=== PATIENT | male | born 1985 | race American Indian/Alaskan Native ===

== ENCOUNTER 2016-12-04 02:38 | Emergency (ER) | payer SELFPAY ==
[2016-12-04 04:02] LABS: BASO % 0.2 % (0.0-2.0); EOS % 0.2 % (0.0-4.0); HEMATOCRIT 44.4 % (35.0-51.0); LYMPH # 1.9 K/uL (1.0-4.3); LYMPH % 23.1 % (20.0-40.0); MEAN CELL VOLUME 91.9 fL (80.0-94.0); MEAN CORPUSCULAR HGB CONC 32.7 g/dL (33.0-37.0); MONO # 0.6 K/uL (0.0-0.8); MONO % 7.4 % (0.0-10.0); WHITE BLOOD COUNT 8.2 K/uL (4.8-10.8)
[2016-12-04 04:07] LABS: RBC URINE 3 /hpf (0-3); URINE BILIRUBIN NEGATIVE (NEGATIVE); URINE BLOOD 1+ (NEGATIVE); URINE COLOR Yellow (YELLOW); URINE GLUCOSE (UA) NORMAL (Normal); URINE KETONE NEGATIVE (NEGATIVE); URINE LEUKOCYTE ESTERASE NEG Leu/uL (Negative); URINE PROTEIN NEGATIVE (NEGATIVE); WBC URINE 1 /hpf (0-5)
[2016-12-04 04:13] LABS: CHLORIDE 98 mmol/L (98-107); POTASSIUM 3.4 mmol/L (3.6-5.2); SODIUM 138 mmol/L (132-148)
[2016-12-04 04:15] LABS: CARBON DIOXIDE 27 mmol/L (22-30); GFR AFRICAN-AMERICAN > 60
[2016-12-04 04:16] LABS: ALB/GLOB RATIO 1.6 (1.0-2.1); ALKALINE PHOSPHATASE 57 U/L (38-126); ALT/SGPT 25 U/L (21-72); AST/SGOT 25 U/L (17-59); BLOOD UREA NITROGEN 11 mg/dL (9-20); CALCIUM 9.3 mg/dl (8.6-10.4); GLUCOSE,RANDOM 96 mg/dL (75-110); TOTAL PROTEIN 7.5 g/dL (6.3-8.3)
[2016-12-04 04:17] LABS: ALCOHOL SERUM < 10 mg/dl (0-10)
--- NOTE | 2016-12-04 05:45 | C.PDOC ---
Addendum entered and electronically signed by Gabriela Torres PA-C 07:04: Addendum Addendum: 12/04/16 07:00 CXR: Negative( no infiltrates) EKG:NSR at 73 Pt is medically cleared for screening 12/04/16 07:00 Physician Patient Turnover Patient Signed Over To: Christopher Gudino Handoff Comments: pedinf [facility] screening Original Note: History Of Present Illness <Gabriela Torres - Last Filed: 12/04/16 07:00> <Christopher Gudino - Last Filed: 12/04/16 09:43> 31 Y/O MALE PRESENT TO ER BIBEMS c/o of auditory hallucinations x 1 1/2 weeks. Denies Suicidal, homicidal ideations. Pt denies any medical c/o at this time. ( Gabriela Torres) History Per: Patient History/Exam Limitations: no limitations <Gabriela Torres - Last Filed: 12/04/16 07:00> <Christopher Gudino - Last Filed: 12/04/16 09:43> Time Seen by Provider: 12/04/16 03:18 Chief Complaint (Nursing): Psychiatric Evaluation Past Medical History - Medical History PMH: No Chronic Diseases Family History: States: Unknown Family Hx - Social History Hx Alcohol Use: Yes Hx Substance Use: Yes <Gabriela Torres - Last Filed: 12/04/16 07:00> Vital Signs: Last Vital Signs Temp 98 F 12/04/16 07:34 Pulse 71 12/04/16 07:34 Resp 20 12/04/16 07:34 BP 138/90 12/04/16 07:34 Pulse Ox 97 12/04/16 07:34 Review Of Systems Constitutional: Negative for: Fever Respiratory: Negative for: Cough, Shortness of Breath Psych: Positive for: Other (auditory hallucinations). Negative for: Suicidal ideation <Gabriela Trores - Last Filed: 12/04/16 07:00> Physical Exam - Physical Exam Appears: Well, Non-toxic Skin: Normal Color Head: Atraumatic Eye(s): bilateral: Normal Inspection Neck: Normal Cardiovascular: Other (pt refused to be examined) Respiratory: Other (refused exam) Extremity: Bilateral: Atraumatic Gait: Steady <Gabriela Torres - Last Filed: 12/04/16 07:00> ED Course And Treatment - Laboratory Results Result Diagrams: 12/04/16 03:57 12/04/16 03:57 O2 Sat by Pulse Oximetry: 97 Pulse Ox Interpretation: Normal Progress Note: Pt is medically cleared for crisis/ screener's evalution. Pt was evaluated by Crisis and needs screening for involuntary commitment. CXR and EKG ordered <Gabriela Torres - Last Filed: 12/04/16 07:00> - Laboratory Results Result Diagrams: 12/04/16 03:57 12/04/16 03:57 Reevaluation Time: 09:43 Reassessment Condition: Improved (evaled by Psych and Dr. Faith kolb for d/c without f/u per pt preference, baseline Schizophrenia) <Christopher Gudino - Last Filed: 12/04/16 09:43> Disposition - Disposition Disposition Time: 05:53 <Gabriela Torres - Last Filed: 12/04/16 07:00> Doctor Will See Patient In The: Office Counseled Patient/Family Regarding: Studies Performed, Diagnosis - Disposition Disposition Time: 09:43 <Christopher Gudino - Last Filed: 12/04/16 09:43> - Disposition Disposition: HOME/ ROUTINE Condition: GOOD - Clinical Impression Clinical Impression: Schizophrenia
[2016-12-04 09:44] VITALS: BP 140/90; PULSE 79; RESP 18; TEMP 97.7; O2SAT 100
--- NOTE | 2016-12-04 09:46 | RAD ---
HISTORY: admission COMPARISON: No prior. TECHNIQUE: Chest PA and lateral FINDINGS: LUNGS: Mild venous congestion. Upper lobe nodularity may be external to the patient. Clinical correlation. PLEURA: No significant pleural effusion identified. No pneumothorax apparent. CARDIOVASCULAR: Normal. OSSEOUS STRUCTURES: No significant abnormalities. VISUALIZED UPPER ABDOMEN: Normal. OTHER FINDINGS: None. IMPRESSION: Mild venous congestion. Upper lobe nodularity may be external to the patient. Clinical correlation.
--- NOTE | 2016-12-04 12:42 | PCM.PSYCH ---
Initial Psychiatric Evaluation - Initial Psychiatric Evaluation Type of Admission: Voluntary Legal Status: Capacity Chief Complaint (in patient's own words): "Just wanna leave" History of Present Illness and Precipitating Events: The pt is seen, chart reviewed and case discussed Consult was requested for his psychiatric condition. He is a 31 yo LM, single, no child, homeless. Poor historian. He admits to feeling depressed and hearing voices but denies command hallucinations or SI/SP. He also doesn't report any HI/HP but he admits to not trusting people and that many people allegedly wronged him. Reports paranoid thoughts. Pt admits to smoking MJ daily and drinking "few shots" He had wdw sxs in the past but denies now. Denies other drugs No psych tx and is not interested and claims "they are sicker than me" meaning mental health staff. Past psych hx: Vague, guarded, says no but he looks like he has hx. Medical; Eye problems Family hx: Denies Past Psychiatric History - Past Psychiatric History Pertinent Medical Hx (Current Medical&Sleep Prob, Allergies): Allergies Allergy/AdvReac Type Severity Reaction Status Date / Time No Known Allergies Allergy Verified 12/04/16 03:15 No Known Home Med 12/04/16 Review of Systems - Psychiatric Psychiatric: Abnormal Sleep Pattern, Anxiety, Difficulty Concentrating, Hallucinations, Irritability, Mood Swings, Paranoia. absent: Homicidal Ideation , Suicidal Ideation Mental Status Examination - Personal Presentation Personal Presentation: Looks older than stated age (disheveled, long dreadlocks) - Affect Affect: Constricted - Motor Activity Motor Activity: Calm - Reliability in Providing Information Reliability in Providing Information: Fair - Speech Speech: Tangential - Mood Mood: Anxious - Formal Thought Process Formal Thought Process: Hallucinations, Paranoia, Loosening of associations - Cognitive Functions Orientation: Person, Place, Time Sensorium: Alert Attention/Concentration: Attentive Abstract Thinking: [place] Estimate of Intelligence: Average Judgement: Intact, as evidence by: Insight regarding need for hospitalization Memory: Recent intact, as evidence by: Ability to recall events of the day, Remote intact, as evidenced by: Abilit to recall sig. life events - Risk Risk: Diminished functioning - Strength & Assets Inventory Strength & Assets Inventory: Cooperative - Limitations Limitations: Living alone DSM 5 DX - DSM 5 DSM 5 Diagnosis: Schizoaffective d/o - bipolar type r/o Schizophrenia Alcohl use d/o - severe Cannabis use d/o -severe - Recommended/Plan of Treatment Treatment Recommendations and Plan of Treatment: Pt is cleared for d/c He is not committable and he is refusing to sign in Return to ER if needed Stay away from drugs, alcohol Risks of leaving without treatment, incl. detox, discussed and he understood but still left. 33 min
--- NOTE | 2016-12-04 12:48 | CARD ---
APPROVED REPORT EKG Measurement Heart [id number] <Conclusion> Normal sinus rhythm Normal ECG
== END 2016-12-04 09:30 | disposition home or self-care (01) ==
LOC: C.ER 02:38
DX: F25.0 Schizoaffective disorder, bipolar type (principal); F10.20 Alcohol dependence, uncomplicated; F12.90 Cannabis use, unspecified, uncomplicated; Y90.9 Presence of alcohol in blood, level not specified
CPT/HCPCS: 71020; 80053; 81001; 85025; 93005; 99284; G0480

== ENCOUNTER 2016-12-10 16:17 | Emergency (ER) | payer MEDICARE ==
[2016-12-10 16:26] VITALS: BP 132/87; RESP 18; TEMP 97.8; O2SAT 97
--- NOTE | 2016-12-10 16:48 | C.PDOC ---
History Of Present Illness 31 year old patient presents to the ED requesting detox from alcohol, ecstasy, and marijuana. Patient states he drinks alcohol, smokes cannabis, and uses ecstasy daily. Patient denies nausea, vomiting, shortness of breath, suicidal or homicidal ideation. Patient states he recently lost his job, is homeless and wants a place to stay. Time Seen by Provider: 12/10/16 16:43 Chief Complaint (Nursing): Substance Abuse History Per: Patient History/Exam Limitations: no limitations Onset/Duration Of Symptoms: Other Suicide/Self Injury Attempted (Context): None Modifying Factor(s): Alcohol, Marijuana, Other Severity: None Pain Scale Rating Of: 0 Recent travel outside of the [place]: No Past Medical History Reviewed: Historical Data, Nursing Documentation, Vital Signs Vital Signs: Last Vital Signs Temp 97.8 F 12/10/16 16:22 Pulse 72 12/10/16 17:12 Resp 18 12/10/16 17:12 BP 132/87 12/10/16 16:22 Pulse Ox 97 12/10/16 17:12 Family History: States: Unknown Family Hx - Social History Hx Alcohol Use: Yes Hx Substance Use: Yes - Immunization History Hx Tetanus Toxoid Vaccination: No Hx Influenza Vaccination: No Hx Pneumococcal Vaccination: No Review Of Systems Except As Marked, All Systems Reviewed And Found Negative. Respiratory: Negative for: Shortness of Breath Gastrointestinal: Negative for: Nausea, Vomiting Psych: Negative for: Suicidal ideation Physical Exam - Physical Exam Appears: Non-toxic, No Acute Distress, Other (thin, black man with long dreadlocks) Skin: Warm, Dry Head: Atraumatic, Normacephalic Eye(s): bilateral: PERRL, EOMI Neck: Normal ROM, Supple Chest: Symmetrical Cardiovascular: Rhythm Regular Respiratory: No Accessory Muscle Use Extremity: Normal ROM Neurological/Psych: Oriented x3 Gait: Steady ED Course And Treatment O2 Sat by Pulse Oximetry: 97 (RA) Pulse Ox Interpretation: Normal Medical Decision Making Medical Decision Making: seeking detox from marijuana, ecstasy (Amphetamine), and alcohol, but not drinking alcohol lately. NO detox beds available per Crisis Evaled for same recently, and pt declined now lost his job and ? homeless, consider secondary gains... pt has no significant detoxable addictions at this time. Disposition Doctor Will See Patient In The: Office Counseled Patient/Family Regarding: Studies Performed, Diagnosis - Disposition Referrals: [facility] [Outside] [facility] [Outside] Disposition: HOME/ ROUTINE Disposition Time: 16:56 Condition: GOOD Additional Instructions: There are NO detox beds available at this time. Call back to seek availability of the [facility] Detox progams: lists given seek outpatient detox programs. Seek local senior living placement if homeless (lists given) Instructions: Polysubstance Abuse (ED) - Clinical Impression Clinical Impression: Drug abuse - Scribe Statement The provider has reviewed the documentation as recorded by the Scribe Maddi Stafford Provider Attestation: All medical record entries made by the Scribe were at my direction and personally dictated by me. I have reviewed the chart and agree that the record accurately reflects my personal performance of the history, physical exam, medical decision making, and the department course for this patient. I have also personally directed, reviewed, and agree with the discharge instructions and disposition.
[2016-12-10 17:16] VITALS: PULSE 72
== END 2016-12-10 17:19 | disposition home or self-care (01) ==
LOC: C.ER 16:17
DX: F19.10 Other psychoactive substance abuse, uncomplicated (principal)

== ENCOUNTER 2017-01-18 01:37 | Inpatient (IN) | payer MEDICARE ==
[2017-01-18 02:23] LABS: BASO % 0.5 % (0.0-2.0); EOS % 0.3 % (0.0-4.0); HEMATOCRIT 44.8 % (35.0-51.0); LYMPH # 1.1 K/uL (1.0-4.3); LYMPH % 18.2 % (20.0-40.0); MEAN CELL VOLUME 91.8 fL (80.0-94.0); MEAN CORPUSCULAR HGB CONC 32.7 g/dL (33.0-37.0); MEAN PLATELET VOLUME 8.5 fL (7.2-11.7); MONO # 0.9 K/uL (0.0-0.8); MONO % 13.7 % (0.0-10.0); RED CELL DISTRIBUTION WIDTH 14.3 % (11.5-14.5); WHITE BLOOD COUNT 6.2 K/uL (4.8-10.8)
[2017-01-18 02:29] LABS: CHLORIDE 100 mmol/L (98-107); POTASSIUM 3.8 mmol/L (3.6-5.2); SODIUM 139 mmol/L (132-148)
[2017-01-18 02:31] LABS: ALKALINE PHOSPHATASE 66 U/L (38-126); AST/SGOT 19 U/L (17-59); BILIRUBIN,TOTAL 1.8 mg/dL (0.2-1.3); CARBON DIOXIDE 29 mmol/L (22-30); GFR AFRICAN-AMERICAN > 60; TOTAL PROTEIN 7.2 g/dL (6.3-8.3)
[2017-01-18 02:32] LABS: ALCOHOL SERUM < 10 mg/dl (0-10); ALT/SGPT 27 U/L (21-72); BLOOD UREA NITROGEN 15 mg/dL (9-20); CALCIUM 9.1 mg/dl (8.6-10.4); GLUCOSE,RANDOM 91 mg/dL (75-110)
[2017-01-18 02:34] LABS: ALB/GLOB RATIO 2.6 (1.0-2.1)
--- NOTE | 2017-01-18 03:26 | C.PDOC ---
History Of Present Illness <Marian Bee - Last Filed: 01/18/17 03:52> <SolVaishali - Last Filed: 01/18/17 05:22> Patient is a 31 year old male who presents to the ER stating he is depressed and has suicidal ideation. Patient states he is "crazy". ? auditory hallucinations. Denies PMHx or any physical complaints. (Vaishali Horton) <Marian Bee - Last Filed: 01/18/17 03:52> History Per: Patient History/Exam Limitations: no limitations Onset/Duration Of Symptoms: Hrs Current Symptoms Are (Timing): Still Present Suicide/Self Injury Attempted (Context): None Associated Symptoms: Depression, Suicidal Thoughts Involuntary Hold By: None Recent travel outside of the [place]: No <Nicky Hortonov - Last Filed: 01/18/17 05:22> Time Seen by Provider: 01/18/17 01:49 Chief Complaint (Nursing): Psychiatric Evaluation Past Medical History Reviewed: Historical Data, Nursing Documentation, Vital Signs - Medical History PMH: No Chronic Diseases Surgical History: No Surg Hx Family History: States: Unknown Family Hx - Social History Hx Alcohol Use: Yes Hx Substance Use: Yes (unknown) - Immunization History Hx Tetanus Toxoid Vaccination: No Hx Influenza Vaccination: No Hx Pneumococcal Vaccination: No <OrlandokyedonaldVaishali - Last Filed: 01/18/17 05:22> Vital Signs: Last Vital Signs Temp 98 F 01/18/17 04:24 Pulse 81 01/18/17 04:24 Resp 20 01/18/17 04:24 BP 116/74 01/18/17 04:24 Pulse Ox 98 01/18/17 04:24 Review Of Systems Psych: Positive for: Depression, Suicidal ideation <Vaishali Horton - Last Filed: 01/18/17 05:22> Physical Exam - Physical Exam Appears: Non-toxic, No Acute Distress, Other (Guarded, hard to understand) Skin: Normal Color, Warm, Dry Head: Atraumatic, Normacephalic Eye(s): bilateral: Normal Inspection, EOMI Oral Mucosa: Moist Chest: Symmetrical, No Tenderness Cardiovascular: Rhythm Regular, No Murmur Respiratory: Normal Breath Sounds, No Accessory Muscle Use Neurological/Psych: Oriented x3, Normal Speech, Other (No focal deficits) <Vaishali Horton - Last Filed: 01/18/17 05:22> ED Course And Treatment - Laboratory Results Result Diagrams: 01/18/17 02:18 01/18/17 02:18 <Marian Bee - Last Filed: 01/18/17 03:52> - Laboratory Results Result Diagrams: 01/18/17 02:18 01/18/17 02:18 O2 Sat by Pulse Oximetry: 98 (Room air) Pulse Ox Interpretation: Normal Progress Note: Urinalysis ordered. Crisis contacted for evaluation. Pt was seen an d evaluted by social media project manager who discussed case with Dr De La Cruz and agreed upon admission. <Vaishali Horton - Last Filed: 01/18/17 05:22> Disposition Discussed With .: Barbi De La Cruz Comment: accepted the pt on his service and took over the care at 3:52 AM Doctor Will See Patient In The: Hospital Counseled Patient/Family Regarding: Studies Performed, Diagnosis - Disposition Disposition Time: 02:00 - POA Present On Arrival: None <Marian Bee - Last Filed: 01/18/17 03:52> <Vaishali Horton - Last Filed: 01/18/17 05:22> - Disposition Disposition: HOSPITALIZED Condition: FAIR - Clinical Impression Clinical Impression: Schizophrenia, Drug abuse, Alcohol abuse <Marian Bee - Last Filed: 01/18/17 03:52> - Scribe Statement The provider has reviewed the documentation as recorded by the Scribe <Vaishali Horton - Last Filed: 01/18/17 05:22> - Scribe Statement Jai Morin All medical record entries made by the Scribe were at my direction and personally dictated by me. I have reviewed the chart and agree that the record accurately reflects my personal performance of the history, physical exam, medical decision making, and the department course for this patient. I have also personally directed, reviewed, and agree with the discharge instructions and disposition. (Vaishali Horton) Decision To Admit - Pt Status Changed To: Hospital Disposition Of: Inpatient - Admit Certification Admit to Inpatient:: After my assessment, the patient will require hospitalization for at least two midnights. This is because of the severity of symptoms shown, intensity of services needed, and/or the medical risk in this patient being treated as an outpatient. - InPatient: Physician Admission Certification: I certify that this patient requires 2 or more midnights of care for the following reason:: After my assessment, the patient will require hospitalization for at least two midnights. This is because of the severity of symptoms shown, intensity of services needed, and/or the medical risk in this patient being treated as an outpatient. - . Bed Request Type: Psychiatry Admitting Physician: Barbi De La Cruz <Marian Bee - Last Filed: 01/18/17 03:52> <Vaishali Horton - Last Filed: 01/18/17 05:22> - . Patient Diagnosis: Schizophrenia, Drug abuse, Alcohol abuse
[2017-01-18 03:30] LABS: RBC URINE 6 /hpf (0-3); URINE BILIRUBIN 1+ (NEGATIVE); URINE BLOOD NEGATIVE (NEGATIVE); URINE COLOR Amber (YELLOW); URINE GLUCOSE (UA) NORMAL (Normal); URINE KETONE TRACE mg/dL (NEGATIVE); URINE LEUKOCYTE ESTERASE NEG Leu/uL (Negative); URINE PROTEIN NEGATIVE (NEGATIVE); WBC URINE < 1 /hpf (0-5)
--- NOTE | 2017-01-18 10:17 | PCM.PSYCH ---
Initial Psychiatric Evaluation - Initial Psychiatric Evaluation Type of Admission: Voluntary Legal Status: Capacity Chief Complaint (in patient's own words): "I was hearing voices and wanted to kill myself." History of Present Illness and Precipitating Events: Patient is a 31 year old male. He states he is currently homeless after being kicked out of his cousin's house in May for fighting too much. 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 He states he quit his job because he was hearing voices about nursing home, rape, and AIDS. He states the voices were telling him to harm himself. Pt remained remained disorganized and internally preoccupied throughout the interview. He appeared disheveled and unkempt and remained suspicious and delusional. He appeared superficially cooperative but remained guarded about the details. Patient has a history of alcohol abuse and ecstasy abuse. He states his last ecstasy run was 2 months ago. He states he would gum 2-3 tablets. Patient states "I think I am crazy" and demonstrates with his hands that the voices are always talking to him. Patient states he is suicidal but has never attempted to kill himself. Patient is guarded, suspicious, and superficially cooperative during the encounter, and avoided making eye contact. PMHx: patient states he is unsure Current Medications: Active Medications Generic Name Dose Route Start Last Admin Trade Name Freq PRN Reason Stop Dose Admin Benztropine Mesylate 2 mg 01/18/17 08:40 Cogentin PO Q6 PRN Extra Pyramidal Symptoms Diphenhydramine HCl 50 mg 01/18/17 08:40 Benadryl PO Q6 PRN Extra Pyramidal Symptoms Haloperidol 5 mg 01/18/17 08:40 Haldol PO Q8 PRN Moderate Agitation Haloperidol Lactate 5 mg 01/18/17 08:40 Haldol IM Q8 PRN Moderate Agitation Hydroxyzine HCl 50 mg 01/18/17 08:41 Atarax PO Q6 PRN Agitation Lorazepam 2 mg 01/18/17 08:40 Ativan PO Q8H PRN Severe Agitation Trazodone HCl 50 mg 01/18/17 22:00 Desyrel PO HS [facility] Past Psychiatric History - Past Psychiatric History Previous Treatment History: Inpatient Pertinent Medical Hx (Current Medical&Sleep Prob, Allergies): Allergies Allergy/AdvReac Type Severity Reaction Status Date / Time No Known Allergies Allergy Verified 12/10/16 16:26 No Known Home Med 12/04/16 Review of Systems - Review of Systems All systems: reviewed and no additional remarkable complaints except - Psychiatric Psychiatric: Anxiety, Auditory Hallucinations, Irritability, Suicidal Ideation, Visual Hallucinations Mental Status Examination - Personal Presentation Personal Presentation: Looks stated age - Affect Affect: Constricted - Motor Activity Motor Activity: Psychomotor Retardation - Reliability in Providing Information Reliability in Providing Information: Poor, due to alteration in thoughts, Poor , due to altered mood - Speech Speech: Disorganized - Mood Mood: Anxious - Formal Thought Process Formal Thought Process: Hallucinations, Delusions, Paranoia, Loosening of associations - Hallucinations/Delusions Hallucinations: Visual Delusions: Persecution - Obsessions/Compulsions Obsessions: No Compulsions: No - Cognitive Functions Orientation: Person, Place, Situation, Time Sensorium: Alert Attention/Concentration: Attentive Abstract Thinking: [place] Estimate of Intelligence: Below average Judgement: Imparied, as evidence by: Poor judgement, Imparied, as evidence by: Lack of insight into illness - Risk Risk: Suicidal, Diminished functioning - Strength & Assets Inventory Strength & Assets Inventory: Life experience DSM 5 DX - DSM 5 DSM 5 Diagnosis: schizoaffective disorder bipolar type Stimulant use disorder severe - Recommended/Plan of Treatment Treatment Recommendations and Plan of Treatment: Schizoaffective disorder bipolar type CBT Psychoeducation Supportive therapy, group therapy, individual therapy Depakote 250 mg by mouth BID Haldol 5 mg by mouth twice a day Cogentin 1 mg PO BID Trazodone 50 mg by mouth daily at bedtime Stimulant use disorder severe CBT Psychoeducation Supportive therapy, individual therapy Use [place] for abstinence - Smoking Cessation Smoking Cessation Initiated: No
[2017-01-19] MEDS: Divalproex 250 mg DR Tab PO SCH ×2 (10:31→17:52)
--- NOTE | 2017-01-19 15:48 | PCM.PYCHPN ---
Psychiatric Progress Note - Psychiatric Progress Note Patient seen today, length of contact: 15 min Patient Chief Complaint: "I m still hearing voices Problems Identified/Issues Discussed: Patient seen and evaluated, chart reviewed and discussed with the nurse. Patient remained disorganized and internally preoccupied. Patient remained isolated, confined and withdrawn. He still reports of hearing voices. Patient still appears paranoid and delusional. He reports depressed mood and feelings of hopelessness and helplessness. He is taking medication and denies any side effects. Supportive therapy and psychoeducation were given. Medication Change: No Medical Record Reviewed: Yes Mental Status Examination - Cognitive Function Orientation: Person, Place, Situation, Time Memory: Intact Attention: WNL Concentration: Poor Association: Loose Fund of Knowledge: Poor - Mood Mood: Anxious - Affect Affect: Constricted - Speech Speech: Soft - Formal Thought Process Formal Thought Process: Hallucinations, Delusions, Paranoia, Loosening of associations - Suicidal Ideation Suicidal Ideation: No - Homicidal Ideation Homicidal Ideation: No Goal/Treatment Plan - Goal/Treatment Plan Need for Continued Stay: Discharge may exacerbated symptoms, Severe functional impairment Progress Toward Problem(s) and Goals/Treatment Plan: Schizoaffective disorder bipolar type CBT Psychoeducation Supportive therapy, group therapy, individual therapy Depakote 250 mg by mouth BID Haldol 5 mg by mouth twice a day Cogentin 1 mg PO BID Trazodone 50 mg by mouth daily at bedtime Stimulant use disorder severe CBT Psychoeducation Supportive therapy, individual therapy Use [place] for abstinence - Smoking Cessation Smoking Cessation Initiated: No
[2017-01-20] MEDS: Divalproex 250 mg DR Tab PO SCH ×2 (10:33→17:26)
[2017-01-20 11:13] VITALS: O2SAT 99
--- NOTE | 2017-01-20 16:46 | PCM.PYCHPN ---
Psychiatric Progress Note - Psychiatric Progress Note Patient seen today, length of contact: 15 min Patient Chief Complaint: I'm feeling better, can I go home today. Problems Identified/Issues Discussed: Patient seen. Chart reviewed. Case discussed with the staff. Issues related to illness and treatment were discussed with the patient. Patient reported compliant with treatment with no adverse affects. Patient was requesting for discharge today. Patient was not stable enough for discharge as patient appeared angry, irritable and internally preoccupied. Later patient signed a 48 hour notice for discharge. Medical Problems: None reported Diagnostic Results: Reviewed DSM 5 Symptoms Update: Some improvement Medication Change: No Medical Record Reviewed: Yes Mental Status Examination - Cognitive Function Orientation: Person, Place, Situation, Time Memory: Intact Attention: WNL Concentration: WNL Association: WNL Fund of Knowledge: WN Decription of patient's judgement and insights: Poor - Mood Mood: Neutral - Affect Affect: Constricted - Speech Speech: Appropriate - Formal Thought Process Formal Thought Process: Other (Internally preoccupied) - Suicidal Ideation Suicidal Ideation: No - Homicidal Ideation Homicidal Ideation: No Goal/Treatment Plan - Goal/Treatment Plan Need for Continued Stay: Remain at risks for inpatient hospitalization, Discharge may exacerbated symptoms, Severe functional impairment Progress Toward Problem(s) and Goals/Treatment Plan: Patient education Supportive therapy Continue treatment as before Estimated Date of D/C: 01/25/17 - Smoking Cessation Smoking Cessation Initiated: Yes
--- NOTE | 2017-01-20 18:39 | CP.PCM.PN ---
Subjective - Date & Time of Evaluation Date of Evaluation: 01/20/17 Time of Evaluation: 18:37 - Subjective Subjective: House Doctor Note: Patient denies penile discharge or discomfort . Patient requesting STD testing. Will order while in house. No need for medical consult at this time as per Dr. Rodriguez (hospitalist). f/u HIV, RPR, HSV, GC/Chlamydia as requested by patient. Will follow up results in the AM. Eveline Novoa DO- PGY 2 Objective - Vital Signs/Intake and Output Vital Signs (last 24 hours): Temp Pulse Resp BP Pulse Ox 98.2 F 107 H 18 124/86 99 01/20/17 08:12 01/20/17 16:00 01/20/17 08:12 01/20/17 16:00 01/20/17 08:12 - Medications Medications: Current Medications Benztropine Mesylate (Cogentin) 2 mg PO Q6 PRN PRN Reason: Extra Pyramidal Symptoms Benztropine Mesylate (Cogentin) 1 mg PO BID [facility] Last Admin: 01/20/17 17:25 Dose: 1 mg Diphenhydramine HCl (Benadryl) 50 mg PO Q6 PRN PRN Reason: Extra Pyramidal Symptoms Divalproex Sodium (Depakote Dr) 250 mg PO BID [facility] Last Admin: 01/20/17 17:26 Dose: 250 mg Haloperidol (Haldol) 5 mg PO Q8 PRN PRN Reason: Moderate Agitation Last Admin: 01/18/17 12:50 Dose: 5 mg Haloperidol (Haldol) 5 mg PO BID [facility] Last Admin: 01/20/17 17:27 Dose: 5 mg Haloperidol Lactate (Haldol) 5 mg IM Q8 PRN PRN Reason: Moderate Agitation Hydroxyzine HCl (Atarax) 50 mg PO Q6 PRN PRN Reason: Agitation Lorazepam (Ativan) 2 mg PO Q8H PRN PRN Reason: Severe Agitation Last Admin: 01/18/17 17:36 Dose: 2 mg Nicotine (Nicoderm Cq) 1 patch TD DAILY [facility] Last Admin: 01/20/17 10:34 Dose: 1 patch Trazodone HCl (Desyrel) 50 mg PO HS [facility] Last Admin: 01/18/17 22:27 Dose: Not Given - Constitutional Appears: No Acute Distress - Head Exam Head Exam: NORMAL INSPECTION, NORMOCEPHALIC - Eye Exam Eye Exam: EOMI, Normal appearance - ENT Exam ENT Exam: Mucous Membranes Moist - Neck Exam Neck Exam: Full ROM, Normal Inspection - GI/Abdominal Exam GI & Abdominal Exam: Soft. absent: Distended, Tenderness - Exam Exam: Circumcision, NORMAL INSPECTION. absent: Scrotal Swelling, Testicular Tenderness, Uretheral Discharge, Bladder Distension - Extremities Exam Extremities Exam: Normal Inspection - Neurological Exam Neurological Exam: Alert, Awake, Oriented x3 - Psychiatric Exam Psychiatric exam: Flat Affect, Normal Mood - Skin Skin Exam: Dry, Normal Color, Warm
[2017-01-21] MEDS: Divalproex 250 mg DR Tab PO SCH ×2 (10:41→17:14)
--- NOTE | 2017-01-21 13:48 | PCM.PYCHPN ---
Psychiatric Progress Note - Psychiatric Progress Note Patient seen today, length of contact: 15 min Patient Chief Complaint: I'm feeling better and and wants to go home today Problems Identified/Issues Discussed: Patient seen. Chart reviewed. Case discussed with the staff. Issues related to illness and treatment were discussed with the patient. Patient reported compliant with treatment with no adverse affects. Patient was requesting for discharge today. Patient was not stable enough for discharge as patient appeared angry, irritable. Patient already has signed a 48 hour notice for discharge, ending tomorrow. At the time of evaluation, patient was awake alert oriented 3, had no delusions, no auditory or visual hallucinations, no suicidal ideations or homicidal ideations. Medical Problems: None reported Diagnostic Results: Review DSM 5 Symptoms Update: Some improvement with treatment Medication Change: No Medical Record Reviewed: Yes Mental Status Examination - Cognitive Function Orientation: Person, Place, Situation, Time Memory: Intact Attention: WNL Concentration: WNL Association: [facility] Fund of Knowledge: [facility] Decription of patient's judgement and insights: Fair - Mood Mood: Neutral - Affect Affect: Constricted - Speech Speech: Appropriate - Formal Thought Process Formal Thought Process: No Impairment, Other (Internally preoccupied) Psychotic Thoughts and Behaviors: None - Suicidal Ideation Suicidal Ideation: No - Homicidal Ideation Homicidal Ideation: No Goal/Treatment Plan - Goal/Treatment Plan Need for Continued Stay: Remain at risks for inpatient hospitalization, Discharge may exacerbated symptoms, Severe functional impairment Progress Toward Problem(s) and Goals/Treatment Plan: Patient education Supportive therapy Continue treatment as before Estimated Date of D/C: 01/25/17 - Smoking Cessation Smoking Cessation Initiated: Yes
[2017-01-22 08:21] VITALS: RESP 16; TEMP 98
[2017-01-22] MEDS: Divalproex 250 mg DR Tab PO SCH (09:35)
[2017-01-22 10:38] VITALS: BP 124/87; PULSE 92
--- NOTE | 2017-01-22 17:49 | PCM.PYCHDC ---
Mental Status Examination - Mental Status Examination Orientation: Person, Place, Situation, Time Memory: Intact Mood: Neutral Affect: Other (Appropriate) Speech: Appropriate Attention: WNL Concentration: WNL Association: [facility] Fund of Knowledge: WNL Formal Thought Process: No Impairment Description of patient's judgement and insight: Fair Psychotic Thoughts and Behaviors: None Suicidal Ideation: No Current Homicidal Ideation?: No Discharge Summary - Discharge Note Consultations:: List each consultation separately and include: 1. Reason for request. 2. Findings. 3. Follow-up Summary of Hospital Course include:: 1. Description of specific treatment plan utilized for patients during their course of treatmen. 2. Summarize the time- course for resolution of acute symptoms and/or regressed behaviors. 3. Describe issues identified and worked on during hospitalization. 4. Describe medication utilized. 5. Describe medical problems identified and treated. 6. Reassessment of suicide risk Summary of Hospital Course: Patient is a 31 year old male. He states he is currently homeless after being kicked out of his cousin's house in May for fighting too much. 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 He states he quit his job because he was hearing voices about usp, rape, and AIDS. He states the voices were telling him to harm himself. Pt remained remained disorganized and internally preoccupied throughout the interview. He appeared disheveled and unkempt and remained suspicious and delusional. He appeared superficially cooperative but remained guarded about the details. Patient has a history of alcohol abuse and ecstasy abuse. He states his last ecstasy run was 2 months ago. He states he would gum 2-3 tablets. Patient states "I think I am crazy" and demonstrates with his hands that the voices are always talking to him. Patient states he is suicidal but has never attempted to kill himself. Patient is guarded, suspicious, and superficially cooperative during the encounter, and avoided making eye contact. During his stay in the hospital, patient was started on Depakote, Haldol and trazodone along with other medications. In the beginning patient was disorganized and isolative. With the treatment patient started feeling better gradually. Patient signed 48 hour notice for discharge, ending today. Education provided and offered to stay patient refused. Patient wants to be discharged today that patient can go from work. [facility] will go to [facility] [place]. At the time of evaluation and discharge, patient was awake alert oriented 3, had no delusions, no auditory visual hallucinations, no suicidal ideations or homicidal ideations. Patient was discharged in a stable condition. - Final Diagnosis (DSM 5) Condition upon Discharge: FAIR Disposition: HOME/ ROUTINE Prescriptions/Medication Reconciliation: Benztropine [Cogentin] 1 mg IJ BID #60 amp Divalproex [Depakote DR (*BID*)] 250 mg PO BID #60 ect Haloperidol [Haldol] 5 mg PO BID #60 tab - Smoking Cessation Smoking Cessation Medication prescribed: Yes - Antipsychotic Medications Pt discharged on 2 or more routine antipsychotic medications: No
== END 2017-01-22 13:22 | disposition home or self-care (01) | DRG 885 ==
LOC: C.ER 01:37 → C.5E 03:51
PROVIDERS: ADMIT Psychiatry & Neurology Psychiatry; ATTEND Psychiatry & Neurology Psychiatry
PROC: GZ58ZZZ Individual Psychotherapy, Cognitive-Behavioral (ICD-10-PCS; principal; 2017-01-18)
PROC: GZ56ZZZ Individual Psychotherapy, Supportive (ICD-10-PCS; 2017-01-18)
DX: F25.0 Schizoaffective disorder, bipolar type (principal); R45.851 Suicidal ideations; Z59.0 Homelessness; F10.10 Alcohol abuse, uncomplicated; Z79.899 Other long term (current) drug therapy

== ENCOUNTER 2017-02-07 14:03 | Emergency (ER) | payer MEDICARE ==
[2017-02-07 14:16] VITALS: TEMP 98.4; O2SAT 98
[2017-02-07 15:29] LABS: BASO % 0.4 % (0.0-2.0); EOS # 0.1 K/uL (0.0-0.7); EOS % 1.3 % (0.0-4.0); HEMATOCRIT 41.9 % (35.0-51.0); LYMPH # 1.3 K/uL (1.0-4.3); LYMPH % 27.2 % (20.0-40.0); MEAN CELL VOLUME 91.9 fL (80.0-94.0); MEAN CORPUSCULAR HEMOGLOBIN 30.2 pg (27.0-31.0); MEAN CORPUSCULAR HGB CONC 32.9 g/dL (33.0-37.0); MEAN PLATELET VOLUME 8.3 fL (7.2-11.7); MONO # 0.6 K/uL (0.0-0.8); MONO % 12.4 % (0.0-10.0); NRBC % 0.1 % (0.0-2.0); RED CELL DISTRIBUTION WIDTH 14.4 % (11.5-14.5); WHITE BLOOD COUNT 4.6 K/uL (4.8-10.8)
--- NOTE | 2017-02-07 15:34 | C.PDOC ---
History Of Present Illness 31 y/o male, history of schizophrenia, not compliant with medications, presesnts to ED with complaint of hearing voices. Patient states he hears voices telling him to kill himself but does not report any specific plan. Patient also reports burning on urination and is concerned for STD. Patient had full STD workup on 01/21 in the ER. Denies any other complaints. Time Seen by Provider: 02/07/17 14:59 Chief Complaint (Nursing): Psychiatric Evaluation History Per: Patient History/Exam Limitations: no limitations Current Symptoms Are (Timing): Still Present Modifying Factor(s): None Recent travel outside of the [place]: No Past Medical History Reviewed: Historical Data, Nursing Documentation, Vital Signs Vital Signs: Last Vital Signs Temp 98.4 F 02/07/17 14:13 Pulse 90 02/07/17 14:13 Resp 19 02/07/17 14:13 BP 126/82 02/07/17 14:13 Pulse Ox 98 02/07/17 15:34 - Medical History PMH: Schizophrenia - [facility] Procedures INDIVIDUAL PSYCHOTHERAPY, COGNITIVE-BEHAVIORAL (01/18/17) INDIVIDUAL PSYCHOTHERAPY, SUPPORTIVE (01/18/17) Family History: States: Unknown Family Hx - Social History Hx Alcohol Use: Yes Hx Substance Use: No - Immunization History Hx Tetanus Toxoid Vaccination: No Hx Influenza Vaccination: No Hx Pneumococcal Vaccination: No Review Of Systems Except As Marked, All Systems Reviewed And Found Negative. Cardiovascular: Negative for: Chest Pain Respiratory: Negative for: Shortness of Breath Gastrointestinal: Negative for: Vomiting, Abdominal Pain Skin: Negative for: Rash Neurological: Negative for: Dizziness Psych: Positive for: Other (auditory hallucinations) Physical Exam - Physical Exam Appears: Non-toxic, No Acute Distress Skin: Normal Color, Warm, Dry Head: Atraumatic, Normacephalic Oral Mucosa: Moist Neck: Normal ROM, Supple Chest: Symmetrical Cardiovascular: Rhythm Regular Respiratory: Normal Breath Sounds, No Rales, No Rhonchi, No Wheezing Gastrointestinal/Abdominal: Soft, No Tenderness, No Guarding, No Rebound Back: Normal Inspection Extremity: Normal ROM, Capillary Refill (< 2 sec.) Neurological/Psych: Oriented x3 ED Course And Treatment - Laboratory Results Result Diagrams: 02/07/17 15:25 02/07/17 15:25 Lab Interpretation: No Acute Changes O2 Sat by Pulse Oximetry: 98 (RA) Pulse Ox Interpretation: Normal Progress Note: Patient evaluated by crisis. He has had recent evaluation both here and at [facility] for similar complaints. He is well known to Dr De La Cruz who will arrange for out patient evaluation and treatment. Reevaluation Time: 17:38 Reassessment Condition: Improved Disposition Counseled Patient/Family Regarding: Studies Performed, Diagnosis, Need For Followup - Disposition Disposition: HOME/ ROUTINE Disposition Time: 17:39 Condition: IMPROVED Instructions: Schizophrenia (ED) - Clinical Impression Clinical Impression: Schizophrenia - Scribe Statement The provider has reviewed the documentation as recorded by the Romero Kelly Provider Attestation: All medical record entries made by the Romero were at my direction and personally dictated by me. I have reviewed the chart and agree that the record accurately reflects my personal performance of the history, physical exam, medical decision making, and the department course for this patient. I have also personally directed, reviewed, and agree with the discharge instructions and disposition.
[2017-02-07 15:38] LABS: RBC URINE 6 /hpf (0-3); URINE BILIRUBIN NEGATIVE (NEGATIVE); URINE BLOOD NEGATIVE (NEGATIVE); URINE COLOR Yellow (YELLOW); URINE GLUCOSE (UA) NORMAL (Normal); URINE KETONE TRACE mg/dL (NEGATIVE); URINE LEUKOCYTE ESTERASE NEG Leu/uL (Negative); URINE PROTEIN NEGATIVE (NEGATIVE); WBC URINE 1 /hpf (0-5)
[2017-02-07 15:41] LABS: CHLORIDE 98 mmol/L (98-107); SODIUM 135 mmol/L (132-148)
[2017-02-07 15:42] LABS: POTASSIUM 3.8 mmol/L (3.6-5.2)
[2017-02-07 15:44] LABS: ALB/GLOB RATIO 2.2 (1.0-2.1); ALKALINE PHOSPHATASE 64 U/L (38-126); ALT/SGPT 34 U/L (21-72); AST/SGOT 23 U/L (17-59); BILIRUBIN,TOTAL 1.8 mg/dL (0.2-1.3); BLOOD UREA NITROGEN 12 mg/dL (9-20); CARBON DIOXIDE 26 mmol/L (22-30); GFR AFRICAN-AMERICAN > 60; GLUCOSE,RANDOM 79 mg/dL (75-110); TOTAL PROTEIN 7.1 g/dL (6.3-8.3)
[2017-02-07 15:45] LABS: ALCOHOL SERUM < 10 mg/dl (0-10)
[2017-02-07 17:48] VITALS: BP 116/71; PULSE 68; RESP 18
== END 2017-02-07 18:28 | disposition home or self-care (01) ==
LOC: C.ER 14:03
DX: F20.9 Schizophrenia, unspecified (principal)
CPT/HCPCS: 80053; 81001; 85025; 99283; G0480

== ENCOUNTER 2017-03-27 18:52 | Inpatient (IN) | payer MEDICARE ==
[2017-03-27 18:53] VITALS: BMI 22.5
--- NOTE | 2017-03-27 20:08 | C.PDOC ---
History Of Present Illness Gary Sue Jr, a 32 year old male, presents to the emergency department complaining of auditory hallucinations. Denies homicidal/suicidal ideations. Chief Complaint (Nursing): Psychiatric Evaluation History Per: Patient History/Exam Limitations: no limitations Current Symptoms Are (Timing): Still Present Past Medical History Reviewed: Historical Data, Nursing Documentation, Vital Signs Vital Signs: Last Vital Signs Temp 98.3 F 03/27/17 19:29 Pulse 83 03/27/17 19:29 Resp 20 03/27/17 19:29 BP 135/94 H 03/27/17 19:29 Pulse Ox 99 03/27/17 20:53 - Medical History PMH: Schizophrenia Denies: Diabetes, Hepatitis, HIV, HTN, Chronic Kidney Disease, Seizures, Sexually Transmitted Disease - [facility] Procedures INDIVIDUAL PSYCHOTHERAPY, COGNITIVE-BEHAVIORAL (01/18/17) INDIVIDUAL PSYCHOTHERAPY, SUPPORTIVE (01/18/17) Family History: States: Unknown Family Hx - Social History Hx Alcohol Use: Yes Hx Substance Use: No - Immunization History Hx Tetanus Toxoid Vaccination: No Hx Influenza Vaccination: No Hx Pneumococcal Vaccination: No Review Of Systems Except As Marked, All Systems Reviewed And Found Negative. Psych: Positive for: Other (auditory hallucinations). Negative for: Suicidal ideation Physical Exam - Physical Exam Appears: Well, Non-toxic, No Acute Distress Skin: Normal Color, Warm, Dry Head: Atraumatic, Normacephalic Eye(s): bilateral: Normal Inspection, PERRL, EOMI Nose: Normal Tongue: Normal Appearing Lips: Normal Appearing Teeth: Normal Dentition Gingiva: Normal Appearing Throat: Normal Neck: Normal, Normal ROM, Supple Chest: No Deformity, No Tenderness Cardiovascular: Rhythm Regular Respiratory: Normal Breath Sounds, No Wheezing Gastrointestinal/Abdominal: Normal Exam, Soft, No Tenderness, No Guarding, No Rebound Back: Normal Inspection, No CVA Tenderness Extremity: Normal ROM (Traces on cyst on right volar aspect of right wrist, 2.5x2.5cm), No Tenderness (Wrist non tender), No Deformity, No Swelling, Other ( Not inflamed) Neurological/Psych: Oriented x3, Normal Speech ED Course And Treatment - Laboratory Results Result Diagrams: 03/27/17 20:30 03/27/17 20:30 O2 Sat by Pulse Oximetry: 99 (RA) Pulse Ox Interpretation: Normal Medical Decision Making Medical Decision Making: Initial Impression: 32 year old female presenting with auditory hallucinations Initial Plan: * Alcohol Serum * Comp Metabolic Panel * Drug Screen * CBC * Urinalysis * Reevaluation Scribe Attestation Documented by Carito Rolon acting as a scribe fro Justin Malhotra MD. Provider Attestation All medical record entries made by the scribe were at my direction and personally dictated by me. I have reviewed the chart and agree that the record accurately reflects my personal performance, history, physical exam, medical decision making, and the department course for this patient. Ihave also personally directed, reviewed, and agree with the discharge instructions and disposition. Disposition Discussed With : Enrico Foley Doctor Will See Patient In The: Hospital Counseled Patient/Family Regarding: Diagnosis - Disposition Disposition: HOSPITALIZED Disposition Time: 21:17 Condition: STABLE Forms: [facility] (Polish) - POA Present On Arrival: None - Clinical Impression Clinical Impression: Schizoaffective disorder
[2017-03-27 20:34] LABS: BASO % 0.6 % (0.0-2.0); EOS % 0.5 % (0.0-4.0); HEMOGLOBIN 14.8 g/dL (12.0-18.0); LYMPH # 1.5 K/uL (1.0-4.3); LYMPH % 27.2 % (20.0-40.0); MEAN CELL VOLUME 92.3 fL (80.0-94.0); MEAN CORPUSCULAR HGB CONC 33.6 g/dL (33.0-37.0); MEAN PLATELET VOLUME 8.3 fL (7.2-11.7); MONO # 0.5 K/uL (0.0-0.8); MONO % 8.5 % (0.0-10.0); NEUT # 3.6 K/uL (1.8-7.0); NEUT % 63.2 % (50.0-75.0); RBC 4.78 Mil/uL (4.40-5.90); RED CELL DISTRIBUTION WIDTH 14.5 % (11.5-14.5); WHITE BLOOD COUNT 5.7 K/uL (4.8-10.8)
[2017-03-27 20:41] LABS: SQUAMOUS EPITHIAL < 1 /hpf (0-5); URINE BILIRUBIN NEGATIVE (NEGATIVE); URINE BLOOD NEGATIVE (NEGATIVE); URINE CLARITY Clear (Clear); URINE COLOR Yellow (YELLOW); URINE GLUCOSE (UA) NORMAL (Normal); URINE LEUKOCYTE ESTERASE NEG Leu/uL (Negative); URINE NITRATE NEGATIVE (NEGATIVE); URINE PROTEIN NEGATIVE (NEGATIVE)
[2017-03-27 20:47] LABS: ALBUMIN 4.3 g/dL (3.5-5.0)
[2017-03-27 20:48] LABS: BARBITURATES, UR NEGATIVE (NEGATIVE)
[2017-03-27 20:49] LABS: BENZODIAZEPINES, UR NEGATIVE (NEGATIVE); GFR AFRICAN-AMERICAN > 60; GFR NON-AFRICAN AMERICAN > 60
[2017-03-27 20:50] LABS: ALB/GLOB RATIO 1.6 (1.0-2.1); ALT/SGPT 30 U/L (21-72); AST/SGOT 23 U/L (17-59); BLOOD UREA NITROGEN 9 mg/dL (9-20)
[2017-03-27 20:52] LABS: PHENCYCLIDINE, UR NEGATIVE (NEGATIVE)
[2017-03-27 20:53] LABS: OPIATES, UR NEGATIVE (NEGATIVE)
[2017-03-27 22:03] VITALS: O2SAT 98
--- NOTE | 2017-03-28 00:24 | PCM.BM ---
<Manjinder Forbes - Last Filed: 03/28/17 00:23> Treatment Plan Problems - Problems identified on initial assessmt Auditory Hallucinations Date Initiated: 03/27/17 Time Initiated: 22:10 Assessment reference: NA Status: Active Depression Date Initiated: 03/27/17 Time Initiated: 22:10 Assessment reference: NA Status: Active Treatment assets and liabiliti Patient Assests: ADL independent, physically healthy Patient Liabilities: poor support system, substance abuse (Drinks alcohol and smokes marijuana everyday) - Milieu Protocol Maintain good personal hygiene: daily Encourage regular showers, daily Remind patient to perform daily oral care Maintain personal safety: every shift Educate patient to report safety concerns to staff, every shift Monitor environment for contraband/sharps Medication safety: Monitor for expected outcome, potential side effects: every shift, Assess barriers to learning: every shift, Assess readiness for medication education: every shift <Luisana Perla - Last Filed: 03/28/17 11:02> Family Contact Family involvement: Famliy/SO not involved - Goals for Treatment Patient goals for treatment: "I need to know my options." Discharge/Continuing Care - Education Needs Education Needs: Patient Medication, Patient Coping Skills, Patient Community resources - Discharge Discharge Criteria: Tolerates medication w/o severe side effects, Free of Suicidal thoughts, Reduction of target symptoms Discharge to:: Alf - Treatment Team Participation Patient/Family/SO Statement: 03/28/17 11:03 no statement Discussed with Family/SO: No Was Patient/Family/SO present at Treatment Team Meeting: Yes <Barbi De La Cruz - Last Filed: 03/28/17 11:07> - Diagnosis (1) Schizoaffective disorder Status: Acute Interventions: 03/28/17 11:07 Take meds Attend groups (2) Alcohol abuse Status: Acute Interventions: 03/28/17 11:07 Take meds Attend groups
--- NOTE | 2017-03-28 11:09 | PCM.PSYCH ---
Initial Psychiatric Evaluation - Initial Psychiatric Evaluation Type of Admission: Voluntary Legal Status: Capacity Chief Complaint (in patient's own words): I am hearing voices." History of Present Illness and Precipitating Events: Patient is a 32 year old Male admitted for schizoaffective disorder and auditory hallucinations. Patient remained disorganized and internally preoccupied throughout the evaluation. He continued to have loose associations. He reports having auditory hallucinations telling him to "kill himself." When asked who is talking to him in auditory hallucinations, patient says he believes it is supernatural mendez or people. Patient reports fears of having a sexually transmitted disease ( STD), a mental health disorder, and fears "being haunted." Patient reports being suspicious of everyone around him and feels he is being manipulated and lied to by people around him. Patient reports feeling he "is marked" and "targeted" and says people tell him to "kill himself" "you are a liar" and "you should be castrated." Patient reports being admitted for psychiatric illness in the past but does not remember when and for what. He reports discharging himself last time he was in the hospital. Patient says he did not follow up with an outpatient psychiatrist after discharge. Patient is currently homeless. Patient denies drug use but has used ecstasy in the past. Patient reports last using ecstasy in September. Patient reports alcohol use yesterday and says he took "a couple shots of brown liquor." Patient reports tobacco use, when asked how much he says less than a pack every day. Patient says he has had 1 female sexual partner in the past 6 months and did not disclose how many in the past year. Patient says sexual partner was checked for STDs and told him "she's good" but he is suspicious she may be lying. Patient has a cyst on his right wrist. Patient remained irritable and agitated, however he denied any racing of thoughts and fight of ideas. During the interview, he remained paranoid and delusional. He suddenly chilo and yelled at cleaning lady outside the room due to being irritated at the noise of cleaning equipment. Patient is internally preoccupied and responding to internal stimuli. Patient says "I'll pay the rent LC" in the middle of a conversation. PMH None reported, NKDA Current Medications: Active Medications Generic Name Dose Route Start Last Admin Trade Name Freq PRN Reason Stop Dose Admin Benztropine Mesylate 1 mg 03/27/17 23:16 Cogentin PO Q4H PRN dystonia, EPS Haloperidol 5 mg 03/27/17 23:16 Haldol PO Q4H PRN agitation Hydroxyzine HCl 50 mg 03/27/17 23:00 Atarax PO Q6H PRN Anxiety Ibuprofen 600 mg 03/27/17 23:00 Motrin Tab PO Q6H PRN Pain, moderate (4-7) Risperidone 1 mg 03/27/17 23:15 03/27/17 23:16 Risperdal Tab PO 1 mg HS KIKE Administration Trazodone HCl 100 mg 03/27/17 23:00 Desyrel PO HS PRN Insomnia Past Psychiatric History - Past Psychiatric History Previous Treatment History: Inpatient Pertinent Medical Hx (Current Medical&Sleep Prob, Allergies): Allergies Allergy/AdvReac Type Severity Reaction Status Date / Time No Known Allergies Allergy Verified 02/07/17 14:16 No Known Home Med 02/07/17 Review of Systems - Review of Systems All systems: reviewed and no additional remarkable complaints except - Psychiatric Psychiatric: Anxiety, Auditory Hallucinations, Mood Swings, Paranoia, Suicidal Ideation, Visual Hallucinations Mental Status Examination - Personal Presentation Personal Presentation: Looks stated age - Affect Affect: Constricted, Depressed - Motor Activity Motor Activity: Calm - Reliability in Providing Information Reliability in Providing Information: Poor, due to alteration in thoughts, Poor , due to altered mood - Speech Speech: Disorganized - Mood Mood: Depressed, Anxious - Formal Thought Process Formal Thought Process: Hallucinations, Delusions, Paranoia, Loosening of associations - Hallucinations/Delusions Hallucinations: Visual, Auditory Delusions: Persecution - Obsessions/Compulsions Obsessions: No Compulsions: No - Cognitive Functions Orientation: Person, Place, Situation, Time Sensorium: Alert Attention/Concentration: Attentive Abstract Thinking: Snowflake Estimate of Intelligence: Below average Judgement: Imparied, as evidence by: Poor judgement, Imparied, as evidence by: Lack of insight into illness - Risk Risk: Suicidal, Diminished functioning - Limitations Limitations: Living alone DSM 5 DX - DSM 5 DSM 5 Diagnosis: Schizoaffective disorder bipolar type Alcohol use disorder mild - Recommended/Plan of Treatment Treatment Recommendations and Plan of Treatment: Schizoaffective disorder bipolar type CBT Psychoeducation Supportive therapy, group therapy, individual therapy Risperdal 1 mg PO BID Depakote 500 mg O BID Klonopin 1 mg PO BID Trazodone 100 mg by mouth daily at bedtime Alcohol use disorder Mild CBT Psychoeducation Supportive therapy, individual therapy Use [place] for abstinence - Smoking Cessation Smoking Cessation Initiated: No
[2017-03-29] MEDS: Divalproex 500 mg DR Tab PO SCH ×2 (09:55→17:44)
--- NOTE | 2017-03-29 10:24 | PCM.PYCHPN ---
Psychiatric Progress Note - Psychiatric Progress Note Patient seen today, length of contact: 17 min Patient Chief Complaint: I am hearing voices." Problems Identified/Issues Discussed: Patient seen and evaluated, chart reviewed and discussed with the nurse. Patient remained disorganized and internally preoccupied. He appears suspicious , paranoid and psychotic. He remained superficially cooperative and guarded about the details. He is still reporting AH condescending, 'yelling at me and making me feel bad.' He is reporting depressed mood and feelings of hopelessness and helplessness. He is taking medication and denies any side effects. Supportive therapy and psychoeducation were given. Medication Change: Yes (increase risperdal) Medical Record Reviewed: Yes Mental Status Examination - Cognitive Function Orientation: Person, Place, Situation, Time Memory: Intact Attention: Poor Concentration: Poor Association: Loose Fund of Knowledge: Poor - Mood Mood: Depressed, Anxious - Affect Affect: Constricted, Depressed - Speech Speech: Soft - Formal Thought Process Formal Thought Process: Hallucinations, Delusions, Paranoia, Loosening of associations - Suicidal Ideation Suicidal Ideation: Yes - Homicidal Ideation Homicidal Ideation: No Goal/Treatment Plan - Goal/Treatment Plan Need for Continued Stay: Discharge may exacerbated symptoms, Severe functional impairment Progress Toward Problem(s) and Goals/Treatment Plan: Schizoaffective disorder bipolar type CBT Psychoeducation Supportive therapy, group therapy, individual therapy Risperdal 1 mg PO daily Risperdal 3 mg PO HS Depakote 500 mg O BID Klonopin 1 mg PO BID Trazodone 100 mg by mouth daily at bedtime Alcohol use disorder Mild CBT Psychoeducation Supportive therapy, individual therapy Use [place] for abstinence - Smoking Cessation Smoking Cessation Initiated: No
[2017-03-30] MEDS: Divalproex 500 mg DR Tab PO SCH ×2 (09:37→17:52)
--- NOTE | 2017-03-30 10:49 | PCM.PYCHPN ---
Psychiatric Progress Note - Psychiatric Progress Note Patient seen today, length of contact: 17 min Patient Chief Complaint: I am hearing voices." Problems Identified/Issues Discussed: Patient seen and evaluated, chart reviewed and discussed with the nurse. Patient remains internally preoccupied and reports hearing voices that say " kill yourself." Patient says other patients and people outside the hospital bother him because "they don't mind their own business." Patient reports feeling other patient are following him when he walks across the hallway. Patient says medications are helping but they are making him "drowsy." Patient denies suicidal thoughts, and racing thoughts. He appears suspicious, paranoid and deluiosnal. Patient reports improvement in his sleep. He is complaint with the medications. Supportive therapy and psychoeducation were given. Medication Change: Yes (increase risperdal) Medical Record Reviewed: Yes Mental Status Examination - Cognitive Function Orientation: Person, Place, Situation, Time Memory: Intact Attention: Poor Concentration: Poor Association: Loose Fund of Knowledge: Poor - Mood Mood: Depressed, Anxious - Affect Affect: Constricted, Depressed - Speech Speech: Soft - Formal Thought Process Formal Thought Process: Hallucinations, Delusions, Paranoia, Loosening of associations - Suicidal Ideation Suicidal Ideation: Yes - Homicidal Ideation Homicidal Ideation: No Goal/Treatment Plan - Goal/Treatment Plan Need for Continued Stay: Discharge may exacerbated symptoms, Severe functional impairment Progress Toward Problem(s) and Goals/Treatment Plan: Schizoaffective disorder bipolar type CBT Psychoeducation Supportive therapy, group therapy, individual therapy Risperdal 1 mg PO daily Risperdal 3 mg PO HS Depakote 500 mg O BID Klonopin 1 mg PO BID Trazodone 100 mg by mouth daily at bedtime Alcohol use disorder Mild CBT Psychoeducation Supportive therapy, individual therapy Use [facility] for abstinence - Smoking Cessation Smoking Cessation Initiated: No
[2017-03-31 08:12] VITALS: RESP 18
[2017-03-31] MEDS: Divalproex 500 mg DR Tab PO SCH ×2 (09:28→17:33)
--- NOTE | 2017-03-31 19:59 | PCM.PYCHPN ---
Psychiatric Progress Note - Psychiatric Progress Note Patient seen today, length of contact: 15 min Patient Chief Complaint: "I am very nervous" Problems Identified/Issues Discussed: The pt is seen, chart reviewed, case discussed with staff. The pt is compliant with medications and reports no side-effects. Symptoms are improving but needs more time to stabilize. After care discussed, support and psychoeducation given. He was very anxious about "STD tests" and chief writer provided a copy which shows all negative and explained. He showed great relief. However 2 hrs later he put in a 48-hr notice (?) Medication Change: No Medical Record Reviewed: Yes Mental Status Examination - Cognitive Function Orientation: Person, Place, Situation, Time Memory: Intact Attention: Poor Concentration: Poor Association: Loose Fund of Knowledge: Poor - Mood Mood: Depressed, Anxious - Affect Affect: Constricted, Depressed - Speech Speech: Soft - Formal Thought Process Formal Thought Process: Paranoia - Suicidal Ideation Suicidal Ideation: No - Homicidal Ideation Homicidal Ideation: No Goal/Treatment Plan - Goal/Treatment Plan Need for Continued Stay: Discharge may exacerbated symptoms, Severe functional impairment Progress Toward Problem(s) and Goals/Treatment Plan: Support and psychoed [place] and CBT Continue meds After care planning by RUDDY Estimated Date of D/C: 04/02/17
[2017-04-01] MEDS: Divalproex 500 mg DR Tab PO SCH ×2 (09:06→17:21)
--- NOTE | 2017-04-01 19:30 | PCM.PYCHPN ---
Psychiatric Progress Note - Psychiatric Progress Note Patient seen today, length of contact: 15 min Patient Chief Complaint: "I am very nervous" Problems Identified/Issues Discussed: The pt is seen, chart reviewed, case discussed with staff. The pt is compliant with medications and reports no side-effects. Symptoms are improving but needs more time to stabilize. Still odd, psychotic, would not dc today Support given Medication Change: No Medical Record Reviewed: Yes Mental Status Examination - Cognitive Function Orientation: Person, Place, Situation, Time Memory: Intact Attention: Poor Concentration: Poor Association: Loose Fund of Knowledge: Poor - Mood Mood: Depressed, Anxious - Affect Affect: Constricted, Depressed - Speech Speech: Soft - Formal Thought Process Formal Thought Process: Paranoia - Suicidal Ideation Suicidal Ideation: No - Homicidal Ideation Homicidal Ideation: No Goal/Treatment Plan - Goal/Treatment Plan Need for Continued Stay: Discharge may exacerbated symptoms, Severe functional impairment Progress Toward Problem(s) and Goals/Treatment Plan: Support and psychoed [place] and CBT Continue meds After care planning by RUDDY Estimated Date of D/C: 04/02/17
[2017-04-02 07:52] VITALS: BP 116/80; PULSE 84; TEMP 98.1
[2017-04-02] MEDS: Divalproex 500 mg DR Tab PO SCH (09:04)
--- NOTE | 2017-04-02 10:25 | PCM.PYCHDC ---
Mental Status Examination - Mental Status Examination Orientation: Person, Place, Situation, Time Memory: Intact Mood: Neutral Affect: Constricted Speech: Soft Attention: WNL Concentration: WNL Association: WNL Fund of Knowledge: WNL Formal Thought Process: No Impairment Description of patient's judgement and insight: good, fair Psychotic Thoughts and Behaviors: denies any AVH Suicidal Ideation: No Current Homicidal Ideation?: No Discharge Summary - Discharge Note Reason for Hospitalization: Patient is a 32 year old Male admitted for schizoaffective disorder and auditory hallucinations. Patient remained disorganized and internally preoccupied throughout the evaluation. He continued to have loose associations. He reports having auditory hallucinations telling him to "kill himself." When asked who is talking to him in auditory hallucinations, patient says he believes it is supernatural mendez or people. Patient reports fears of having a sexually transmitted disease ( STD), a mental health disorder, and fears "being haunted." Patient reports being suspicious of everyone around him and feels he is being manipulated and lied to by people around him. Patient reports feeling he "is marked" and "targeted" and says people tell him to "kill himself" "you are a liar" and "you should be castrated." Patient reports being admitted for psychiatric illness in the past but does not remember when and for what. He reports discharging himself last time he was in the hospital. Patient says he did not follow up with an outpatient psychiatrist after discharge. Patient is currently homeless. Patient denies drug use but has used ecstasy in the past. Patient reports last using ecstasy in September. Patient reports alcohol use yesterday and says he took "a couple shots of brown liquor." Patient reports tobacco use, when asked how much he says less than a pack every day. Patient says he has had 1 female sexual partner in the past 6 months and did not disclose how many in the past year. Patient says sexual partner was checked for STDs and told him "she's good" but he is suspicious she may be lying. Patient has a cyst on his right wrist. Patient remained irritable and agitated, however he denied any racing of thoughts and fight of ideas. During the interview, he remained paranoid and delusional. He suddenly chilo and yelled at cleaning lady outside the room due to being irritated at the noise of cleaning equipment. Patient is internally preoccupied and responding to internal stimuli. Patient says "I'll pay the rent LC" in the middle of a conversation. Consultations:: List each consultation separately and include: 1. Reason for request. 2. Findings. 3. Follow-up Summary of Hospital Course include:: 1. Description of specific treatment plan utilized for patients during their course of treatmen. 2. Summarize the time- course for resolution of acute symptoms and/or regressed behaviors. 3. Describe issues identified and worked on during hospitalization. 4. Describe medication utilized. 5. Describe medical problems identified and treated. 6. Reassessment of suicide risk Summary of Hospital Course: During the course of his stay, patient (pt) started progressively improving and he no longer remained anxious, paranoid and psychotic. He started attending groups and meetings and started socializing. He denied any feelings of hopelessness, helplessness, and worthlessness, denied any problem with the sleep or appetite, denied suicidal ideation or homicidal ideation. Pt denied any auditory or visual hallucinations. Patient remained calm and cooperative and remained compliant with the medications. Patient tolerated the medications very well and denied any adverse effects including sweating, tremors or stiffness. - Diagnosis (1) Schizoaffective disorder Status: Acute (2) Alcohol abuse Status: Acute - Final Diagnosis (DSM 5) Condition upon Discharge: STABLE DSM 5: Schizoaffective disorder bipolar type Alcohol use disorder Mild Disposition: HOME/ ROUTINE Follow-up Treatment Plan: Education: Pt was educated and counseled about the risks and benefits of taking and not taking medications. Pt was educated and counseled about the risks of drinking and abusing drugs. Pt was educated and counseled to go to the ER or call 911 if pt develop suicidal ideation or homicidal ideation, worsening of symptoms or severe side effects of the meds. Prescriptions/Medication Reconciliation: Benztropine [Cogentin] 1 mg PO BID PRN #60 tab PRN Reason: dystonia, EPS Divalproex [Depakote DR] 500 mg PO BID #60 tcp risperiDONE [RisperDAL Tab] 2 mg PO DAILY #30 tab risperiDONE [RisperDAL Tab] 3 mg PO HS #30 tab traZODone [Desyrel] 100 mg PO HS PRN #30 tab PRN Reason: Insomnia
== END 2017-04-02 12:15 | disposition home or self-care (01) | DRG 885 ==
LOC: C.ER 18:52 → C.5E 21:19
PROVIDERS: ADMIT Psychiatry & Neurology Psychiatry; ATTEND Psychiatry & Neurology Psychiatry
PROC: GZHZZZZ Group Psychotherapy (ICD-10-PCS; principal; 2017-03-27)
PROC: GZ58ZZZ Individual Psychotherapy, Cognitive-Behavioral (ICD-10-PCS; 2017-03-27)
PROC: GZ56ZZZ Individual Psychotherapy, Supportive (ICD-10-PCS; 2017-03-27)
PROC: HZ52ZZZ Individual Psychotherapy for Substance Abuse Treatment, Cognitive-Behavioral (ICD-10-PCS; 2017-03-27)
PROC: HZ59ZZZ Individual Psychotherapy for Substance Abuse Treatment, Supportive (ICD-10-PCS; 2017-03-27)
PROC: HZ56ZZZ Individual Psychotherapy for Substance Abuse Treatment, Psychoeducation (ICD-10-PCS; 2017-03-27)
DX: F25.0 Schizoaffective disorder, bipolar type (principal); Z59.0 Homelessness; F10.10 Alcohol abuse, uncomplicated; F17.210 Nicotine dependence, cigarettes, uncomplicated; Z79.899 Other long term (current) drug therapy; F12.10 Cannabis abuse, uncomplicated

== ENCOUNTER 2017-04-19 12:30 | Emergency (ER) | payer MEDICARE ==
[2017-04-19 12:31] VITALS: BMI 22.5
[2017-04-19 12:38] VITALS: RESP 16
--- NOTE | 2017-04-19 13:38 | C.PDOC ---
History Of Present Illness 32 y/o male presents to ED who states "I'm having insomnia and cannot sleep because I am hearing echoes or voices". Patient reports that the voices are telling him he has an STD. Also reports suicidal thoughts. Denies homicidal ideaton, suicidal plan or attempt, or other physical complaints. Notes he was discharged 2 days ago from [facility], "I think I am schizophrenic." Time Seen by Provider: 04/19/17 12:56 Chief Complaint (Nursing): Psychiatric Evaluation History Per: Patient History/Exam Limitations: no limitations Onset/Duration Of Symptoms: Persistent Current Symptoms Are (Timing): Still Present Suicide/Self Injury Attempted (Context): None Associated Symptoms: Suicidal Thoughts. denies: Suicidal Plan Recent travel outside of the [place]: No Past Medical History Reviewed: Historical Data, Nursing Documentation, Vital Signs Vital Signs: Last Vital Signs Temp 98.3 F 04/19/17 14:48 Pulse 70 04/19/17 14:48 Resp 16 04/19/17 14:48 BP 139/72 04/19/17 14:48 Pulse Ox 98 04/19/17 14:48 - Medical History PMH: Schizophrenia - [facility] Procedures GROUP PSYCHOTHERAPY (03/27/17) INDIV PSYCHOTHERAPY FOR SUBSTANCE ABUSE TREATMENT, SUPPORT (03/27/17) INDIV PSYCHOTHERAPY FOR SUBSTANCE ABUSE, COGNITIV BEHAVIORAL (03/27/17) INDIV PSYCHOTHERAPY FOR SUBSTANCE ABUSE, PSYCHOEDUCATION (03/27/17) INDIVIDUAL PSYCHOTHERAPY, COGNITIVE-BEHAVIORAL (03/27/17) INDIVIDUAL PSYCHOTHERAPY, SUPPORTIVE (03/27/17) Family History: States: Unknown Family Hx - Social History Hx Alcohol Use: Yes Hx Substance Use: Yes - Immunization History Hx Tetanus Toxoid Vaccination: No Hx Influenza Vaccination: No Hx Pneumococcal Vaccination: No Review Of Systems Except As Marked, All Systems Reviewed And Found Negative. Constitutional: Negative for: Fever, Chills Cardiovascular: Negative for: Chest Pain Respiratory: Negative for: Shortness of Breath, Wheezing Gastrointestinal: Negative for: Vomiting Skin: Negative for: Rash Neurological: Negative for: Headache Psych: Positive for: Suicidal ideation Physical Exam - Physical Exam Additional Physical Exam Comments: Constitutional: No acute distress. Head: Normocephalic. Atraumatic. Eyes: PERRL. ENT: Moist mucous membranes. Neck: Supple. Cardiovascular: Regular rate. Radial pulse 2+ bilaterally. Chest: No tenderness. Respiratory: Clear to auscultation bilaterally. GI: (+) RLQ tenderness, (+) guarding. Soft. Nondistended. Back: No CVA tenderness. Musculoskeletal: No tenderness or swelling of extremities. Skin: No rash. Neurologic: Alert, no focal deficit. ED Course And Treatment - Laboratory Results Result Diagrams: 04/19/17 13:47 04/19/17 13:47 O2 Sat by Pulse Oximetry: 96 (RA) Pulse Ox Interpretation: Normal Medical Decision Making Medical Decision Making: Plan: * Crisis Eval * Labs * Reassess Progress: Medically clear. Evaluated by Crisis. Dr. De La Cruz recommends against admission at this time. Patient has outpatient follow up already and has been prescribed medications to take. Disposition - Disposition Disposition: HOME/ ROUTINE Disposition Time: 14:53 Condition: STABLE Instructions: Schizophrenia (ED) Forms: [facility] (Estonian) - Clinical Impression Clinical Impression: Schizophrenia - Scribe Statement The provider has reviewed the documentation as recorded by the Scribe SM All medical record entries made by the Scribe were at my direction and personally dictated by me. I have reviewed the chart and agree that the record accurately reflects my personal performance of the history, physical exam, medical decision making, and the department course for this patient. I have also personally directed, reviewed, and agree with the discharge instructions and disposition.
[2017-04-19 13:52] LABS: BASO % 0.4 % (0.0-2.0); EOS % 0.7 % (0.0-4.0); HEMATOCRIT 41.3 % (35.0-51.0); LYMPH # 1.4 K/uL (1.0-4.3); LYMPH % 22.1 % (20.0-40.0); MEAN CELL VOLUME 92.9 fL (80.0-94.0); MEAN CORPUSCULAR HEMOGLOBIN 30.9 pg (27.0-31.0); MEAN CORPUSCULAR HGB CONC 33.2 g/dL (33.0-37.0); MEAN PLATELET VOLUME 8.2 fL (7.2-11.7); MONO # 0.6 K/uL (0.0-0.8); MONO % 9.8 % (0.0-10.0); NRBC % 0.1 % (0.0-2.0); RED CELL DISTRIBUTION WIDTH 14.7 % (11.5-14.5); WHITE BLOOD COUNT 6.2 K/uL (4.8-10.8)
[2017-04-19 13:53] LABS: RBC URINE < 1 /hpf (0-3); URINE BILIRUBIN NEGATIVE (NEGATIVE); URINE BLOOD NEGATIVE (NEGATIVE); URINE COLOR Yellow (YELLOW); URINE GLUCOSE (UA) NORMAL (Normal); URINE KETONE NEGATIVE (NEGATIVE); URINE LEUKOCYTE ESTERASE NEG Leu/uL (Negative); URINE PROTEIN NEGATIVE (NEGATIVE); URINE UROBILINOGEN NORMAL mg/dL (0.2-1.0); WBC URINE < 1 /hpf (0-5)
[2017-04-19 14:00] LABS: CHLORIDE 103 mmol/L (98-107); SODIUM 141 mmol/L (132-148)
[2017-04-19 14:03] LABS: ALB/GLOB RATIO 1.4 (1.0-2.1); ALKALINE PHOSPHATASE 50 U/L (38-126); ALT/SGPT 46 U/L (21-72); AST/SGOT 26 U/L (17-59); BILIRUBIN,TOTAL 0.7 mg/dL (0.2-1.3); BLOOD UREA NITROGEN 9 mg/dL (9-20); CALCIUM 9.3 mg/dl (8.6-10.4); CARBON DIOXIDE 27 mmol/L (22-30); GFR AFRICAN-AMERICAN > 60; GLUCOSE,RANDOM 77 mg/dL (75-110); TOTAL PROTEIN 6.6 g/dL (6.3-8.3)
[2017-04-19 14:04] LABS: ALCOHOL SERUM < 10 mg/dl (0-10)
[2017-04-19 14:48] VITALS: BP 139/72; PULSE 70; TEMP 98.3
[2017-04-19 14:53] VITALS: O2SAT 96
== END 2017-04-19 15:03 | disposition home or self-care (01) ==
LOC: C.ER 12:30
DX: F20.9 Schizophrenia, unspecified (principal)
CPT/HCPCS: 80053; 81001; 85025; 99284; G0480

== ENCOUNTER 2017-04-25 19:36 | Inpatient (IN) | payer MEDICARE ==
[2017-04-25 19:36] VITALS: BMI 22.5
[2017-04-25 20:17] LABS: BASO % 0.6 % (0.0-2.0); EOS # 0.2 K/uL (0.0-0.7); EOS % 3.2 % (0.0-4.0); HEMATOCRIT 41.4 % (35.0-51.0); LYMPH # 1.4 K/uL (1.0-4.3); LYMPH % 27.5 % (20.0-40.0); MEAN CELL VOLUME 91.6 fL (80.0-94.0); MEAN CORPUSCULAR HEMOGLOBIN 30.9 pg (27.0-31.0); MEAN CORPUSCULAR HGB CONC 33.7 g/dL (33.0-37.0); MEAN PLATELET VOLUME 8.1 fL (7.2-11.7); MONO # 0.5 K/uL (0.0-0.8); MONO % 9.5 % (0.0-10.0); NRBC % 0.1 % (0.0-2.0); RED CELL DISTRIBUTION WIDTH 14.1 % (11.5-14.5); WHITE BLOOD COUNT 5.2 K/uL (4.8-10.8)
[2017-04-25 20:24] LABS: RBC URINE 1 /hpf (0-3); URINE BILIRUBIN NEGATIVE (NEGATIVE); URINE BLOOD NEGATIVE (NEGATIVE); URINE COLOR Yellow (YELLOW); URINE GLUCOSE (UA) NORMAL (Normal); URINE KETONE NEGATIVE (NEGATIVE); URINE LEUKOCYTE ESTERASE NEG Leu/uL (Negative); URINE PROTEIN NEGATIVE (NEGATIVE); URINE UROBILINOGEN NORMAL mg/dL (0.2-1.0); WBC URINE < 1 /hpf (0-5)
[2017-04-25 20:24] LABS: CHLORIDE 102 mmol/L (98-107)
[2017-04-25 20:25] LABS: POTASSIUM 3.6 mmol/L (3.6-5.2); SODIUM 140 mmol/L (132-148)
[2017-04-25 20:27] LABS: ALB/GLOB RATIO 1.5 (1.0-2.1); ALKALINE PHOSPHATASE 52 U/L (38-126); AST/SGOT 17 U/L (17-59); BLOOD UREA NITROGEN 8 mg/dL (9-20); CARBON DIOXIDE 28 mmol/L (22-30); GFR AFRICAN-AMERICAN > 60; GLUCOSE,RANDOM 87 mg/dL (75-110); TOTAL PROTEIN 7.1 g/dL (6.3-8.3)
[2017-04-25 20:28] LABS: ALCOHOL SERUM < 10 mg/dl (0-10); ALT/SGPT 28 U/L (21-72); CALCIUM 9.6 mg/dl (8.6-10.4)
--- NOTE | 2017-04-25 20:59 | C.PDOC ---
History Of Present Illness 32 year old male presents to the ED with complaints of suicidal ideations for the last few weeks. Patient was seen in [facility] last week for similar complaints and discharged home. He was seen in [facility] yesterday and denies homicidal ideations, suicidal plan, or physical complaints at this time. Chief Complaint (Nursing): Psychiatric Evaluation History Per: Patient History/Exam Limitations: no limitations Onset/Duration Of Symptoms: Persistent (few weeks ) Current Symptoms Are (Timing): Still Present Suicide/Self Injury Attempted (Context): None Associated Symptoms: Suicidal Thoughts. denies: Suicidal Plan Involuntary Hold By: None Recent travel outside of the [place]: No Additional History Per: Prior Records Past Medical History Reviewed: Historical Data, Nursing Documentation, Vital Signs Vital Signs: Last Vital Signs Temp 98.2 F 04/25/17 19:42 Pulse 103 H 04/25/17 19:42 Resp 20 04/25/17 19:42 BP 124/83 04/25/17 19:42 Pulse Ox 98 04/25/17 21:00 - Medical History PMH: Anxiety, Depression, Schizophrenia - [facility] Procedures GROUP PSYCHOTHERAPY (03/27/17) INDIV PSYCHOTHERAPY FOR SUBSTANCE ABUSE TREATMENT, SUPPORT (03/27/17) INDIV PSYCHOTHERAPY FOR SUBSTANCE ABUSE, COGNITIV BEHAVIORAL (03/27/17) INDIV PSYCHOTHERAPY FOR SUBSTANCE ABUSE, PSYCHOEDUCATION (03/27/17) INDIVIDUAL PSYCHOTHERAPY, COGNITIVE-BEHAVIORAL (03/27/17) INDIVIDUAL PSYCHOTHERAPY, SUPPORTIVE (03/27/17) Family History: States: Unknown Family Hx - Social History Hx Alcohol Use: No Hx Substance Use: No - Immunization History Hx Tetanus Toxoid Vaccination: No Hx Influenza Vaccination: No Hx Pneumococcal Vaccination: No Review Of Systems Constitutional: Negative for: Fever, Chills Cardiovascular: Negative for: Chest Pain, Palpitations Respiratory: Negative for: Cough, Shortness of Breath Gastrointestinal: Negative for: Nausea, Vomiting, Abdominal Pain, Diarrhea Psych: Positive for: Suicidal ideation Physical Exam - Physical Exam Appears: Non-toxic, No Acute Distress Skin: Warm, Dry Head: Atraumatic Eye(s): bilateral: Normal Inspection Oral Mucosa: Moist Neck: Supple Chest: Symmetrical, No Deformity Cardiovascular: Rhythm Regular Respiratory: Normal Breath Sounds, No Rales, No Rhonchi, No Wheezing Gastrointestinal/Abdominal: Soft, No Tenderness, No Distention, No Guarding, No Rebound Neurological/Psych: Oriented x3, Normal Speech, Normal Cognition ED Course And Treatment - Laboratory Results Result Diagrams: 04/25/17 20:11 04/25/17 20:11 O2 Sat by Pulse Oximetry: 98 (room air ) Progress Note: Labs and UA were ordered. Disposition Discussed With : Barbi De La Cruz Doctor Will See Patient In The: Hospital Counseled Patient/Family Regarding: Diagnosis - Disposition Disposition: HOSPITALIZED Disposition Time: 21:34 Condition: STABLE Forms: [facility] (Turkish) - POA Present On Arrival: None - Clinical Impression Clinical Impression: Schizoaffective disorder, Depressed - Scribe Statement The provider has reviewed the documentation as recorded by the Scribe Taina Bills All medical record entries made by the Scribe were at my direction and personally dictated by me. I have reviewed the chart and agree that the record accurately reflects my personal performance of the history, physical exam, medical decision making, and the department course for this patient. I have also personally directed, reviewed, and agree with the discharge instructions and disposition.
--- NOTE | 2017-04-25 22:23 | PCM.BM ---
<Tiki Esquivel - Last Filed: 04/25/17 22:22> Treatment Plan Problems - Problems identified on initial assessmt Auditory Hallucinations Date Initiated: 04/25/17 Time Initiated: 22:22 Assessment reference: NA Status: Active Comment: + for THC Treatment assets and liabiliti Patient Assests: ADL independent, physically healthy Patient Liabilities: poor support system, substance abuse - Milieu Protocol Maintain good personal hygiene: daily Encourage regular showers, daily Remind patient to perform daily oral care Conduct patient checks and document Observation sheet: Q15 minutes Maintain personal safety: every shift Educate patient to report safety concerns to staff, every shift Monitor environment for contraband/sharps Medication safety: Monitor for expected outcome, potential side effects: every shift, Assess barriers to learning: every shift, Assess readiness for medication education: every shift <Enrico Foley - Last Filed: 04/26/17 12:30> - Diagnosis (1) Schizoaffective disorder Status: Acute Interventions: 04/26/17 12:30 * Assess/adjust medications daily and /or as needed * See patient on an individual basis 7x/week to assess symptoms of depression * Monitor for side effects & effectiveness of medications * * Assess/adjust medications daily and /or as needed * Discuss risks, benefits, sided effects and alternatives of medications * See patient on an individual basis 7x/week to assess level of delusional thoughts/ideation * <Luisana Perla - Last Filed: 04/27/17 11:41> Family Contact Family involvement: Famliy/SO not involved - Outside Agency Agency 1 Care involvment: Information-sharing Agency contact name: [facility] Agency contact number: - Goals for Treatment Patient goals for treatment: "I need outpatient treatment." Discharge/Continuing Care - Education Needs Education Needs: Patient Medication, Patient Coping Skills, Patient Community resources - Discharge Discharge Criteria: Tolerates medication w/o severe side effects, Free of Suicidal thoughts, Reduction of target symptoms Discharge to:: Correction - Treatment Team Participation Discussed with Family/SO: No Was Patient/Family/SO present at Treatment Team Meeting: Yes
[2017-04-25] MEDS: Divalproex 500 mg DR Tab PO SCH ×2 (22:24→22:44)
[2017-04-26] MEDS: Divalproex 500 mg DR Tab PO SCH ×2 (10:49→17:44)
--- NOTE | 2017-04-26 12:10 | PCM.PSYCH ---
Initial Psychiatric Evaluation - Initial Psychiatric Evaluation Type of Admission: Voluntary Legal Status: Capacity Chief Complaint (in patient's own words): "I had this overwhelming feeling, anxiety , depression ,after two shots at [facility]" History of Present Illness and Precipitating Events: The patient is seen, chart reviewed and case discussed. This is a 32-year-old -[place] male, single with no child, unemployed but on SSI. He lives with a friend in [place]. 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 The patient claims that he had been hospitalized at [facility] and given 2 shots of a depot antipsychotic. He doesn't know the name. However, he states that since that time he has been feeling more depressed and anxious and also dizzy. He has a vague suicidal ideation but before admission he even had plans to choke himself with an extension cord. He has no past attempts. He reports paranoid thoughts, hearing voices telling came lots of negative things, and many depressive symptoms. He is not taking any medications currently. Denies drug or alcohol use but smokes 1 ppd cig. Past psych history: Several admissions and no suicide attempts. Family psych history: Mother was schizophrenic Medical history: Denies Current Medications: Active Medications Generic Name Dose Route Start Last Admin Trade Name Freq PRN Reason Stop Dose Admin Benztropine Mesylate 2 mg 04/25/17 22:13 04/25/17 22:25 Cogentin PO 2 mg Q6 PRN Administration Extra Pyramidal Symptoms Diphenhydramine HCl 50 mg 04/25/17 22:13 Benadryl PO Q6 PRN Extra Pyramidal Symptoms Divalproex Sodium 500 mg 04/25/17 22:15 04/26/17 10:[address] PO 500 mg BID KIKE Administration Haloperidol 5 mg 04/25/17 22:13 Haldol PO Q8 PRN Moderate Agitation Haloperidol Lactate 5 mg 04/25/17 22:13 Haldol IM Q8 PRN Moderate Agitation Lorazepam 1 mg 04/25/17 22:13 04/25/17 22:25 Ativan PO 1 mg Q6 PRN Administration Anxiety Past Psychiatric History - Past Psychiatric History Previous Treatment History: Inpatient Pertinent Medical Hx (Current Medical&Sleep Prob, Allergies): Allergies Allergy/AdvReac Type Severity Reaction Status Date / Time No Known Allergies Allergy Verified 04/25/17 19:48 Benztropine [Cogentin] 1 mg PO BID PRN #60 tab 04/02/17 Divalproex [Depakote DR] 500 mg PO BID #60 tcp 04/02/17 risperiDONE [RisperDAL Tab] 2 mg PO DAILY #30 tab 04/02/17 risperiDONE [RisperDAL Tab] 3 mg PO HS #30 tab 04/02/17 traZODone [Desyrel] 100 mg PO HS PRN #30 tab 04/02/17 Review of Systems - Neurological Neurological: UNREMARKABLE - Psychiatric Psychiatric: Abnormal Sleep Pattern, Anhedonia, Anxiety, Auditory Hallucinations , Change in Appetite, Depression, Difficulty Concentrating, Hallucinations, Irritability, Mood Swings, Panic Attacks, Paranoia, Suicidal Ideation (no plans or intentions now. ). absent: Homicidal Ideation Mental Status Examination - Personal Presentation Personal Presentation: Looks older than stated age - Affect Affect: Blunted - Motor Activity Motor Activity: Calm - Reliability in Providing Information Reliability in Providing Information: Good - Speech Speech: Organized (but slowed) - Mood Mood: Depressed, Anxious - Formal Thought Process Formal Thought Process: Hallucinations, Delusions, Paranoia - Cognitive Functions Orientation: Person, Place, Situation, Time Sensorium: Alert Attention/Concentration: Easily distracted Abstract Thinking: [place] Estimate of Intelligence: Below average Judgement: Intact, as evidence by: Insight regarding need for hospitalization Memory: Recent intact, as evidence by: Ability to recall events of the day, Remote intact, as evidenced by: Abilit to recall sig. life events - Risk Risk: Diminished functioning - Strength & Assets Inventory Strength & Assets Inventory: Cooperative - Limitations Limitations: Living alone DSM 5 DX - DSM 5 DSM 5 Diagnosis: Schizoaffective d/o - depressed - Recommended/Plan of Treatment Treatment Recommendations and Plan of Treatment: Risperdal for psychosis lexapro for depression depakote for mood stabilization Support and psychoed Attend groups and activities [place] for smoking cessation and patch Refer to BARBARA 33 min Projected ELOS: 6-7 days Prognosis: good with treatment - Smoking Cessation Smoking Cessation Initiated: Yes
[2017-04-27] MEDS: Divalproex 500 mg DR Tab PO SCH ×2 (10:00→17:21)
--- NOTE | 2017-04-27 12:16 | PCM.PYCHPN ---
Psychiatric Progress Note - Psychiatric Progress Note Patient seen today, length of contact: 16 min Patient Chief Complaint: "I had this overwhelming feeling, anxiety , depression ,[facility] Problems Identified/Issues Discussed: The pt is seen, chart reviewed, case discussed with staff. Support given, CBT used briefly No new symptoms reported, improving slowly and needs more time No SEs from medications, risks discussed. After care discussed He also asked for help with hiusing Still very blunted in affect, thought disordered, odd, has AH Medication Change: Yes Medical Record Reviewed: Yes Mental Status Examination - Cognitive Function Orientation: Person, Place, Situation, Time Memory: Impaired Attention: Poor Concentration: Poor Association: WNL Fund of Knowledge: Poor - Mood Mood: Depressed, Anxious - Affect Affect: Blunted - Speech Speech: Appropriate (slowed) - Formal Thought Process Formal Thought Process: Hallucinations, Delusions, Paranoia - Suicidal Ideation Suicidal Ideation: No - Homicidal Ideation Homicidal Ideation: No Goal/Treatment Plan - Goal/Treatment Plan Need for Continued Stay: Discharge may exacerbated symptoms, Severe functional impairment Progress Toward Problem(s) and Goals/Treatment Plan: Risperdal for psychosis lexapro for depression depakote for mood stabilization Support and psychoed Attend groups and activities MA for smoking cessation and patch Refer to BARBARA
[2017-04-28] MEDS: Divalproex 500 mg DR Tab PO SCH ×2 (11:32→17:22)
[2017-04-29] MEDS: Divalproex 500 mg DR Tab PO SCH ×2 (09:45→17:29)
[2017-04-30] MEDS: Divalproex 500 mg DR Tab PO SCH ×2 (10:01→17:40)
--- NOTE | 2017-05-01 07:19 | PCM.PYCHPN ---
Psychiatric Progress Note - Psychiatric Progress Note Patient seen today, length of contact: 15 MIin Patient Chief Complaint: I FEEL STRANGE, I FEEL LIKE I HAVE TO MOVE BUT I CAN'T Problems Identified/Issues Discussed: SIDE EFFECTS OF RISPERDAL AKITHESIA PT IS ALSO GRIMICING HAS BRADYKINESIA Medical Problems: AKITHESIA Diagnostic Results: REVIEWED DSM 5 Symptoms Update: EPS Medication Change: Yes (D/C RISPERDAL USE SEROQUEL) Medical Record Reviewed: Yes Mental Status Examination - Cognitive Function Orientation: Person, Situation, Time Memory: Impaired Attention: Poor Concentration: Poor Fund of Knowledge: Poor - Mood Mood: Depressed, Anxious - Affect Affect: Blunted - Speech Speech: Appropriate (slowed) - Formal Thought Process Formal Thought Process: Hallucinations, Delusions, Paranoia - Suicidal Ideation Suicidal Ideation: No - Homicidal Ideation Homicidal Ideation: No Goal/Treatment Plan - Goal/Treatment Plan Need for Continued Stay: Discharge may exacerbated symptoms, Severe functional impairment Progress Toward Problem(s) and Goals/Treatment Plan: SCHIZOAFFECTIVE SISORDER DEPRESSED TYPE SEROQUEL LEXAPRO DEPAKOTE [facility] [place] CBT SUPPORTIVE PSYCHOTHERAPY Estimated Date of D/C: 05/07/17 - Smoking Cessation Smoking Cessation Initiated: No
--- NOTE | 2017-05-01 07:26 | PCM.PYCHPN ---
Psychiatric Progress Note - Psychiatric Progress Note Patient seen today, length of contact: 15 MIin Patient Chief Complaint: I CAN MOVE BETTER TODAY Problems Identified/Issues Discussed: GRIMACING LESS RISK BENEFITS OF SEROQUEL Medical Problems: NOTHING ACUTE Diagnostic Results: REVIEWED DSM 5 Symptoms Update: LESS AHEDONIC MORE GOSL DIRECTED ENERGY Medication Change: No Medical Record Reviewed: Yes Mental Status Examination - Cognitive Function Orientation: Person, Place, Situation Memory: Impaired Attention: Poor Concentration: Poor Fund of Knowledge: Poor - Mood Mood: Depressed, Anxious - Affect Affect: Blunted - Speech Speech: Appropriate (slowed) - Formal Thought Process Formal Thought Process: Hallucinations, Delusions, Paranoia - Suicidal Ideation Suicidal Ideation: No - Homicidal Ideation Homicidal Ideation: No Goal/Treatment Plan - Goal/Treatment Plan Need for Continued Stay: Severe depression anxiety, Discharge may exacerbated symptoms, Severe functional impairment Progress Toward Problem(s) and Goals/Treatment Plan: SAD DEPRESSED TYPE SEROQUEL DEPAKOTE LEXAPRP [place] CBT SUPPORTIVE PSYCHOTHERAPY Estimated Date of D/C: 05/07/17 - Smoking Cessation Smoking Cessation Initiated: No
--- NOTE | 2017-05-01 07:35 | PCM.PYCHPN ---
Psychiatric Progress Note - Psychiatric Progress Note Patient seen today, length of contact: 15 MIin Patient Chief Complaint: I FEEL BETTER Problems Identified/Issues Discussed: MEDICATION AND TREATMENT ADHERENCE MANAGING SYMPTOMS Medical Problems: NOTHING ACUTE Diagnostic Results: REVIEWED Medication Change: No Medical Record Reviewed: Yes Mental Status Examination - Cognitive Function Orientation: Place, Situation Memory: Impaired Attention: WNL Concentration: WNL Association: WNL Fund of Knowledge: Poor - Mood Mood: Depressed - Affect Affect: Blunted - Speech Speech: Appropriate (slowed) - Formal Thought Process Formal Thought Process: Hallucinations, Delusions, Paranoia - Suicidal Ideation Suicidal Ideation: No - Homicidal Ideation Homicidal Ideation: No Goal/Treatment Plan - Goal/Treatment Plan Need for Continued Stay: Severe depression anxiety, Severe functional impairment Progress Toward Problem(s) and Goals/Treatment Plan: SCHIZOAFFECTIVE DISORDER SEROQUEL DEPAKOTE LEXAPRO GROUP [facility] [place] CBT SUPPORTIVE PSYCHOTHERAPY Estimated Date of D/C: 05/07/17 - Smoking Cessation Smoking Cessation Initiated: No
[2017-05-01] MEDS: Divalproex 500 mg DR Tab PO SCH ×2 (09:52→17:17)
--- NOTE | 2017-05-01 14:19 | PCM.PYCHPN ---
Psychiatric Progress Note - Psychiatric Progress Note Patient seen today, length of contact: 15 MIin Patient Chief Complaint: "My meds are helping" Problems Identified/Issues Discussed: Pt is seen, chart reviewed, case discussed with staff. Pt spent morning in bed with blankets covering his face but was cooperative during interview. He is currently experiencing audio hallucinations, paranoia, depression, anxiety, racing thoughts and insomnia. He denies SI and HI. Pt is compliant with medications and reports they are improving his condition. Reports side effect of facial "twitch" as result of Risperdal that began "not that long ago" (unspecified). Symptoms are improving but needs more time to stabilize. After care discussed, support and psychoeducation given. Medication Change: No Medical Record Reviewed: Yes Mental Status Examination - Cognitive Function Orientation: Person, Place, Situation, Time Memory: Impaired Attention: Poor Concentration: Poor Association: WNL Fund of Knowledge: Poor - Mood Mood: Depressed - Affect Affect: Blunted - Speech Speech: Appropriate (slowed) - Formal Thought Process Formal Thought Process: Hallucinations, Delusions, Paranoia - Suicidal Ideation Suicidal Ideation: No - Homicidal Ideation Homicidal Ideation: No Goal/Treatment Plan - Goal/Treatment Plan Need for Continued Stay: Remain at risks for inpatient hospitalization, Severe depression anxiety, Discharge may exacerbated symptoms, Severe functional impairment Progress Toward Problem(s) and Goals/Treatment Plan: Schizoaffective disorder - depressive Support and psychoeducation given Attend groups and activities Continue Cogentin, Depakote, Lexapro, Haldol, Ativan, Seroquel, Desyrel as prescribed Estimated Date of D/C: 05/07/17 - Smoking Cessation Smoking Cessation Initiated: No
[2017-05-02] MEDS: Divalproex 500 mg DR Tab PO SCH ×2 (10:08→17:20)
--- NOTE | 2017-05-02 15:34 | PCM.PYCHPN ---
Psychiatric Progress Note - Psychiatric Progress Note Patient seen today, length of contact: 15 MIin Patient Chief Complaint: "It's easy for me to sleep now" Problems Identified/Issues Discussed: Pt is seen, chart reviewed, case discussed with staff. Pt is compliant with medications and reports no side effects. Once again, pt agreed to answer questions while laying in bed with blankets covering his face. He reports that his sleep has improved and he is no longer experiencing insomnia. He continues to experience audio hallucinations and paranoia but says that they are "getting better." Symptoms are improving but pt needs more time to stabilize. Support and psychoeducation given. Pt will discuss after care with SW. Medication Change: No Medical Record Reviewed: Yes Mental Status Examination - Cognitive Function Orientation: Person, Place, Situation, Time Memory: Intact Attention: WNL Concentration: WNL Association: WNL Fund of Knowledge: WNL - Mood Mood: Depressed - Affect Affect: Blunted - Speech Speech: Appropriate (slowed) - Formal Thought Process Formal Thought Process: Hallucinations, Delusions, Paranoia - Suicidal Ideation Suicidal Ideation: No - Homicidal Ideation Homicidal Ideation: No Goal/Treatment Plan - Goal/Treatment Plan Need for Continued Stay: Remain at risks for inpatient hospitalization, Severe depression anxiety, Discharge may exacerbated symptoms, Severe functional impairment Progress Toward Problem(s) and Goals/Treatment Plan: Schizoaffective disorder - depressive Support and psychoeducation given Attend groups and activities Continue Fili, Dimple, Lexapro, Haldol, Ativan, Seroquel, Desyrel as prescribed Estimated Date of D/C: 05/07/17
[2017-05-03] MEDS: Divalproex 500 mg DR Tab PO SCH ×2 (10:02→17:34)
--- NOTE | 2017-05-03 10:15 | PCM.PYCHPN ---
Psychiatric Progress Note - Psychiatric Progress Note Patient seen today, length of contact: 15 min Patient Chief Complaint: "I'm doing alright" Problems Identified/Issues Discussed: Pt is seen, chart reviewed, case discussed with staff. Pt is compliant with medications and reports no side effects. Once again, pt spent morning in bed with blankets covering his entire body and face. He expressed that he feels claustrophobic sitting in the "overcrowded" TV room with the other patients and prefers to be alone in his room. He reports that he continues to experience audio hallucinations but they're "not as bad as yesterday." He also reports to feel less paranoid than yesterday. However, he expressed some concern on how his symptoms will fare after D/C. Support and psychoeducation given. Pt reports that he will be prepared to follow up at [facility] after D/C. Medication Change: No Medical Record Reviewed: Yes Mental Status Examination - Cognitive Function Orientation: Person, Place, Situation, Time Memory: Intact Attention: WNL Concentration: WNL Association: WNL Fund of Knowledge: WNL - Mood Mood: Depressed - Affect Affect: Flat - Speech Speech: Appropriate (slowed) - Formal Thought Process Formal Thought Process: Hallucinations, Paranoia - Suicidal Ideation Suicidal Ideation: No - Homicidal Ideation Homicidal Ideation: No Goal/Treatment Plan - Goal/Treatment Plan Need for Continued Stay: Remain at risks for inpatient hospitalization, Severe depression anxiety, Discharge may exacerbated symptoms, Severe functional impairment Progress Toward Problem(s) and Goals/Treatment Plan: Schizoaffective disorder, depressive type Support and psychoeducation given Attend groups and activities Start Prolixin 5 mg PO Q8 PRN Continue other medications as prescribed Estimated Date of D/C: 05/07/17
[2017-05-04] MEDS: Divalproex 500 mg DR Tab PO SCH ×2 (10:25→17:04)
--- NOTE | 2017-05-04 11:21 | PCM.BM ---
<ConnerLuisana Perez - Last Filed: 05/04/17 11:20> Treatment Plan Problems - Problems identified on initial assessmt Auditory Hallucinations Date Initiated: 04/25/17 Time Initiated: 22:22 Assessment reference: NA Status: Active Comment: + for THC Treatment assets and liabiliti Patient Assests: ADL independent, physically healthy Patient Liabilities: poor support system, substance abuse - Milieu Protocol Maintain good personal hygiene: daily Encourage regular showers, daily Remind patient to perform daily oral care Conduct patient checks and document Observation sheet: Q15 minutes Maintain personal safety: every shift Educate patient to report safety concerns to staff, every shift Monitor environment for contraband/sharps Medication safety: Monitor for expected outcome, potential side effects: every shift, Assess barriers to learning: every shift, Assess readiness for medication education: every shift Milieu Narrative: Schizoaffective disorder, depressive type Support and psychoeducation given Attend groups and activities Start Prolixin 5 mg PO Q8 PRN Continue other medications as prescribed Family Contact Family involvement: Famliy/SO not involved - Outside Agency Agency 1 Care involvment: Information-sharing Agency contact name: [facility] Agency contact number: - Goals for Treatment Patient goals for treatment: "I need outpatient treatment." Discharge/Continuing Care - Education Needs Education Needs: Patient Medication, Patient Coping Skills, Patient Community resources - Discharge Discharge Criteria: Tolerates medication w/o severe side effects, Free of Suicidal thoughts, Reduction of target symptoms Discharge to:: [facility] - Treatment Team Participation Patient/Family/SO Statement: Schizoaffective disorder, depressive type Support and psychoeducation given Attend groups and activities Start Prolixin 5 mg PO Q8 PRN Continue other medications as prescribed Discussed with Family/SO: No Was Patient/Family/SO present at Treatment Team Meeting: Yes Treatment Plan Review Patient participation: Yes Family/SO/Caregiver participation: No - Problem Auditory Hallucinations Date Initiated: 05/04/17 Time Initiated: 11:20 Progress toward outcomes: unchanged <Barbi De La Cruz - Last Filed: 05/04/17 11:26> - Diagnosis (1) Schizoaffective disorder Status: Acute Interventions: 04/26/17 12:30 * Assess/adjust medications daily and /or as needed * See patient on an individual basis 7x/week to assess symptoms of depression * Monitor for side effects & effectiveness of medications * * Assess/adjust medications daily and /or as needed * Discuss risks, benefits, sided effects and alternatives of medications * See patient on an individual basis 7x/week to assess level of delusional thoughts/ideation * <Brittany Zheng - Last Filed: 05/04/17 14:46> Treatment Plan Review - Problem Auditory Hallucinations Progress toward outcomes: improved
--- NOTE | 2017-05-04 11:28 | PCM.PYCHPN ---
Psychiatric Progress Note - Psychiatric Progress Note Patient seen today, length of contact: 15 min Patient Chief Complaint: "I'm feeling good" Problems Identified/Issues Discussed: Pt is seen, chart reviewed, case discussed with staff. Pt is compliant with medications and reports no side effects. Pt spent first part of morning in bed with blankets covering his entire body and face and did not respond to questions although he appeared to be awake beneath his blankets. He remained disorganized, internally preoccupied and delusional. Later on, he was seen in the cafeteria and agreed to be interviewed. He currently reports no complaints and feels that he will be ready for his expected discharge on Sunday. Support and psychoeducation given. Medication Change: Yes (increase prolixin) Medical Record Reviewed: Yes Mental Status Examination - Cognitive Function Orientation: Person, Place, Situation, Time Memory: Intact Attention: WNL Concentration: Poor Association: Loose Fund of Knowledge: Poor - Mood Mood: Depressed, Anxious - Affect Affect: Constricted - Speech Speech: Appropriate (slowed) - Formal Thought Process Formal Thought Process: Delusions, Paranoia, Loosening of associations - Suicidal Ideation Suicidal Ideation: No - Homicidal Ideation Homicidal Ideation: No Goal/Treatment Plan - Goal/Treatment Plan Need for Continued Stay: Remain at risks for inpatient hospitalization, Severe depression anxiety, Discharge may exacerbated symptoms, Severe functional impairment Progress Toward Problem(s) and Goals/Treatment Plan: Schizoaffective disorder, depressive type Support and psychoeducation given Attend groups and activities Continue medications as prescribed Increase prolixin to 10 mg PO BID Depakote 500 mg PO BID Lexapro 10 mg Trazodone 100 mg Seroquel 50 mg Estimated Date of D/C: 05/07/17 - Smoking Cessation Smoking Cessation Initiated: No
[2017-05-05] MEDS: Divalproex 500 mg DR Tab PO SCH ×2 (10:04→17:15)
--- NOTE | 2017-05-05 11:06 | PCM.PYCHPN ---
Psychiatric Progress Note - Psychiatric Progress Note Patient seen today, length of contact: 15 min Patient Chief Complaint: The pt is seen, chart reviewed, case discussed with staff. The pt is compliant with medications and reports no side-effects. Symptoms are improving but needs more time to stabilize. Still odd and isolated After care discussed, support and psychoeducation given. Problems Identified/Issues Discussed: The pt is seen, chart reviewed, case discussed with staff. Support given, CBT used briefly No new symptoms reported, improving slowly and needs more time No SEs from medications, risks discussed. After care discussed He also asked for help with hiusing Still very blunted in affect, thought disordered, odd, has AH Medication Change: No Medical Record Reviewed: Yes Mental Status Examination - Cognitive Function Orientation: Person, Place, Situation, Time Memory: Intact Attention: WNL Concentration: Poor Association: Loose Fund of Knowledge: Poor - Mood Mood: Depressed, Anxious - Affect Affect: Constricted - Speech Speech: Appropriate (slowed) - Formal Thought Process Formal Thought Process: Delusions, Paranoia - Suicidal Ideation Suicidal Ideation: No - Homicidal Ideation Homicidal Ideation: No Goal/Treatment Plan - Goal/Treatment Plan Need for Continued Stay: Remain at risks for inpatient hospitalization, Severe depression anxiety, Discharge may exacerbated symptoms, Severe functional impairment Progress Toward Problem(s) and Goals/Treatment Plan: Prolixin for psychosis lexapro for depression depakote for mood stabilization Support and psychoed Attend groups and activities OR for smoking cessation and patch Refer to BARBARA Estimated Date of D/C: 05/07/17
[2017-05-06] MEDS: Divalproex 500 mg DR Tab PO SCH ×2 (09:47→17:47)
[2017-05-06 15:53] VITALS: O2SAT 98
--- NOTE | 2017-05-06 23:39 | PCM.PYCHPN ---
Psychiatric Progress Note - Psychiatric Progress Note Patient seen today, length of contact: 15 min Patient Chief Complaint: "Same" Problems Identified/Issues Discussed: The pt is seen, chart reviewed, case discussed with staff. Support given, CBT used briefly No new symptoms reported, improving slowly and needs more time No SEs from medications, risks discussed. After care discussed Flat affect, slow TP, high risk of relapse Medication Change: No Medical Record Reviewed: Yes Mental Status Examination - Cognitive Function Orientation: Person, Place, Situation, Time Memory: Intact Attention: WNL Concentration: Poor Association: Loose Fund of Knowledge: Poor - Mood Mood: Depressed, Anxious - Affect Affect: Constricted - Speech Speech: Appropriate (slowed) - Formal Thought Process Formal Thought Process: Delusions, Paranoia - Suicidal Ideation Suicidal Ideation: No - Homicidal Ideation Homicidal Ideation: No Goal/Treatment Plan - Goal/Treatment Plan Need for Continued Stay: Remain at risks for inpatient hospitalization, Severe depression anxiety, Discharge may exacerbated symptoms, Severe functional impairment Progress Toward Problem(s) and Goals/Treatment Plan: Prolixin for psychosis lexapro for depression depakote for mood stabilization Support and psychoed Attend groups and activities [place] for smoking cessation and patch Refer to BARBARA Estimated Date of D/C: 05/07/17
--- NOTE | 2017-05-07 09:55 | PCM.PYCHPN ---
Psychiatric Progress Note - Psychiatric Progress Note Patient seen today, length of contact: 15 min Patient Chief Complaint: "Medications are helping." Problems Identified/Issues Discussed: Pt. is seen, chart reviewed, case discussed with staff. Pt. is compliant with medications and reports no side-effects. Pt. admits to staying isolated b/c he still feels claustrophobic sitting in the "overcrowded" TV room with other patients and prefers to be alone in his room. Pt. denies auditory and visual hallucinations and denies suicidal and homicidal ideation. Pt. does still exhibit flat affect and slow movements around his mouth. No new symptoms reported, improving slowly, and needs more time. After care discussed, support and psychoeducation given. Pt. will be discharged tomorrow. Medication Change: No Medical Record Reviewed: Yes Mental Status Examination - Cognitive Function Orientation: Person, Place, Situation, Time Memory: Intact Attention: Poor Concentration: Poor Association: WNL Fund of Knowledge: WNL - Mood Mood: Depressed - Affect Affect: Flat - Speech Speech: Appropriate (slowed) - Formal Thought Process Formal Thought Process: No Impairment - Suicidal Ideation Suicidal Ideation: No - Homicidal Ideation Homicidal Ideation: No Goal/Treatment Plan - Goal/Treatment Plan Need for Continued Stay: Remain at risks for inpatient hospitalization, Severe depression anxiety, Discharge may exacerbated symptoms, Severe functional impairment Progress Toward Problem(s) and Goals/Treatment Plan: Schizoaffective disorder, depressive type Support and psychoeducation given Attend groups and activities Start Prolixin 5 mg PO Q8 PRN Continue other medications as prescribed Estimated Date of D/C: 05/08/17 - Smoking Cessation Smoking Cessation Initiated: Yes
[2017-05-07] MEDS: Divalproex 500 mg DR Tab PO SCH ×2 (10:15→18:26)
[2017-05-08 07:38] VITALS: BP 115/80; PULSE 65; RESP 19; TEMP 97.7
[2017-05-08] MEDS: Divalproex 500 mg DR Tab PO SCH (09:51)
--- NOTE | 2017-05-08 09:54 | PCM.PYCHDC ---
Mental Status Examination - Mental Status Examination Orientation: Person, Place, Situation, Time Memory: Intact Mood: Neutral Affect: Constricted Speech: Soft Attention: WNL Concentration: WNL Association: WNL Fund of Knowledge: WNL Formal Thought Process: No Impairment Description of patient's judgement and insight: good, fair Psychotic Thoughts and Behaviors: denies any AVH Suicidal Ideation: No Current Homicidal Ideation?: No Discharge Summary - Discharge Note Reason for Hospitalization: The patient is seen, chart reviewed and case discussed. This is a 32-year-old -Liberian male, single with no child, unemployed but on SSI. He lives with a friend in [place]. 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 The patient claims that he had been hospitalized at [facility] and given 2 shots of a depot antipsychotic. He doesn't know the name. However, he states that since that time he has been feeling more depressed and anxious and also dizzy. He has a vague suicidal ideation but before admission he even had plans to choke himself with an extension cord. He has no past attempts. He reports paranoid thoughts, hearing voices telling came lots of negative things, and many depressive symptoms. He is not taking any medications currently. Denies drug or alcohol use but smokes 1 ppd cig. Consultations:: List each consultation separately and include: 1. Reason for request. 2. Findings. 3. Follow-up Summary of Hospital Course include:: 1. Description of specific treatment plan utilized for patients during their course of treatmen. 2. Summarize the time- course for resolution of acute symptoms and/or regressed behaviors. 3. Describe issues identified and worked on during hospitalization. 4. Describe medication utilized. 5. Describe medical problems identified and treated. 6. Reassessment of suicide risk Summary of Hospital Course: During the course of his stay, patient (pt) started progressively improving and he no longer remained irritable, depressed, paranoid and suicidal. His mood was improved and he started attending groups and meetings and started socializing. Patient denied any feelings of hopelessness, helplessness, and worthlessness, denied any problem with the sleep or appetite, denied suicidal ideation or homicidal ideation. Pt denied any auditory or visual hallucinations. Some changes were made in his current medications and patient was discharged on following medications. He tolerated these medications very well and denied any side effects. CBT and AR were used. - Diagnosis (1) Schizoaffective disorder Status: Acute - Final Diagnosis (DSM 5) Condition upon Discharge: STABLE DSM 5: Schizoaffective d/o - depressed Disposition: HOME/ ROUTINE Follow-up Treatment Plan: Education: Pt was educated and counseled about the risks and benefits of taking and not taking medications. Pt was educated and counseled about the risks of drinking and abusing drugs. Pt was educated and counseled to go to the ER or call 911 if pt develop suicidal ideation or homicidal ideation, worsening of symptoms or severe side effects of the meds. Prescriptions/Medication Reconciliation: Benztropine [Cogentin] 1 mg PO BID #60 tab Divalproex [Depakote DR] 500 mg PO BID #60 tcp Escitalopram [Lexapro] 10 mg PO DAILY #30 tab fluPHENAZine [Prolixin] 10 mg PO BID #60 tab QUEtiapine [SEROquel] 50 mg PO HS #30 tab - Smoking Cessation Smoking Cessation Medication prescribed: No - Antipsychotic Medications Pt discharged on 2 or more routine antipsychotic medications: No
== END 2017-05-08 12:45 | disposition home or self-care (01) | DRG 885 ==
LOC: C.ER 19:36 → C.5E 21:36
PROVIDERS: ADMIT Psychiatry & Neurology Psychiatry; ATTEND Psychiatry & Neurology Psychiatry
PROC: GZHZZZZ Group Psychotherapy (ICD-10-PCS; principal; 2017-04-26)
PROC: GZ58ZZZ Individual Psychotherapy, Cognitive-Behavioral (ICD-10-PCS; 2017-04-26)
PROC: GZ56ZZZ Individual Psychotherapy, Supportive (ICD-10-PCS; 2017-04-26)
DX: F25.1 Schizoaffective disorder, depressive type (principal); R45.851 Suicidal ideations; G25.71 Drug induced akathisia; F17.210 Nicotine dependence, cigarettes, uncomplicated; T43.595A Adverse effect of other antipsychotics and neuroleptics, initial encounter; F12.90 Cannabis use, unspecified, uncomplicated; F41.8 Other specified anxiety disorders

== ENCOUNTER 2018-02-21 08:56 | Day surgery (SDC) | payer MEDICARE, MEDICAID ==
[2018-02-21 07:26] VITALS: BMI 23.7
[2018-02-21] MEDS ORDERED: Iohexol 240 (50 ml) ONE (11:44)
[2018-02-21] MEDS ORDERED: cefTRIAXone IV 1 gm in Dextros 50 ML IVPB ONE (11:44)
[2018-02-21] MEDS ORDERED: Lidocaine 2% Jelly (Uro-Jet) ONE (11:45)
[2018-02-21] MEDS ORDERED: Propofol 10 mg/ml Inj (20 ML) ONE (11:46)
[2018-02-21] MEDS ORDERED: Midazolam 2 MG/2 ML VIAL ONE (11:46)
[2018-02-21] MEDS ORDERED: Oxycodone/Acetaminophen 5/325 mg Tab PO PRN (12:06)
[2018-02-21] MEDS ORDERED: Lactated Ringer's 1,000 ML IV ONE (12:08)
[2018-02-21] MEDS ORDERED: HYDROmorphone 0.5 mg/0.5 ml ISec IVP PRN (12:10)
[2018-02-21 12:23] VITALS: O2SAT 100
[2018-02-21 13:08] VITALS: BP 102/70; PULSE 81; RESP 18; TEMP 97
--- NOTE | 2018-02-21 16:47 | RAD ---
HISTORY: HEMATURIA COMPARISON: No prior. FINDINGS: BOWEL: Stool retention.. No obstruction. BONES: Sclerotic appearance to each iliac SI joint side OTHER FINDINGS: No gross urolithiasis involving either kidney or proximal ureter seen. The most inferior aspect of the bladder is not visually included on this exam. IMPRESSION: No renal or proximal urolithiasis appreciated
--- NOTE | 2018-03-18 15:27 | HP ---
UROLOGY ADMISSION HISTORY AND PHYSICAL REASON FOR ADMISSION: Workup for voiding dysfunction. HISTORY OF PRESENT ILLNESS: Mr. Sue is a very pleasant gentleman who has voiding dysfunction. He has decreased force of stream. He has both irritative and obstructive urinary complaints. He has no gross hematuria. Currently, he is here to rule out urethral stricture disease. We have discussed the options and location. We possibly will have to do it here in the hospital, so listed for a cystoscopy. PAST MEDICAL AND SURGICAL HISTORY: As listed on the chart. No history of an LA or CVA. REVIEW OF SYSTEMS: Listed above. No weight loss, chest pain, or shortness of breath. MEDICATIONS: See chart. ALLERGIES: NO KNOWN DRUG ALLERGIES. PHYSICAL EXAMINATION: GENERAL: A well-nourished male in no apparent distress. VITAL SIGNS: Within normal limits, see chart. LUNGS: Clear. HEART: S1, S2. ABDOMEN: Overall soft. Nontender. No flank mass appreciated. GENITOURINARY: Normal male phallus without discharge. No testicular mass. RECTAL: Deferred. I do want to mention now 10 to 20 gm soft small prostate. LABORATORY DATA: See chart. FINAL DIAGNOSES: Voiding dysfunction, decreased force of stream, irritative and obstructive urinary complaints. PLAN: The plan is as follows. We discussed options of workup, location. We have tried medical therapy. This is not working, and the patient wants further diagnostic studies. We are going to rule out urethral stricture. PLAN: As follows: Cystoscopy and then further plans and possible retrograde pyelogram, possible biopsy, possible IOU. Further plans to follow depending the findings clinically. Risks and benefits were discussed with the patient at length, and I am planning to continue with the procedure. Shree Altamirano MD
--- NOTE | 2018-03-19 07:56 | OP ---
PROCEDURE DATE: 02/21/2018 PREOPERATIVE DIAGNOSES: Voiding dysfunction, decreased flow of stream, irritative and obstructive urinary complaints. POSTOPERATIVE DIAGNOSES: Voiding dysfunction, decreased flow of stream, irritative and obstructive urinary complaints. PROCEDURE: Cystoscopy. SURGEON: Shree Altamirano MD. COMPLICATIONS: There were no complications. BLOOD LOSS: Less than 10 mL. FINDINGS: 1. Normal anterior urethra. No strictures. 2. Verumontanum is visually occlusive about 2 cm in length. 3. The bladder mucosa within normal limits. There were no specific abnormal findings that was found. INDICATIONS: See history and physical for further details. In brief, the patient is a young gentleman with voiding dysfunction. We discussed options to rule out stricture, possibility for bladder lesions, no evidence were found today. The patient with voiding dysfunction. We discussed options. We tried medical therapy. We tried various options. After discussing for the above-listed procedures. DESCRIPTION OF PROCEDURE: After obtaining informed consent, the patient was placed on the table. Routine monitors were placed. Time-out was called in confirming the patient positioning. We actually decided to use the flexible cystoscope for this patient. The patient was kept in a supine position. With the plan if anything further was abnormal, we would put him in lithotomy and readjust the scope. For gentle reasons we did a flexible cystoscope. The patient was placed in supine. We provided lidocaine jelly in addition to anesthesia. Cystoscope via the urethra under direct vision, the entire procedure was done with the camera. The patient has normal phallus, normal meatus. Cystoscope via urethra noted normal anterior urethra. There was no strictures. Verumontanum is minimally visually occlusive with the bladder inspected very carefully. We identified the ureteral orifices. There was no bladder cancers and no bladder lesions. There was really no abnormalities to speak of. The patient tolerated the procedure well without complication. At this point, it's a little difficult but we did a rectal exam it's a 20 gm soft prostate. No abnormalities appreciated. The patient tolerated the procedure well without complications. Shree Altamirano MD
== END 2018-02-21 16:08 | disposition home or self-care (01) ==
LOC: C.SDS 08:56
PROVIDERS: ATTEND Urology
DX: R31.29 Other microscopic hematuria (principal); R39.198 Other difficulties with micturition; N13.9 Obstructive and reflux uropathy, unspecified
CPT/HCPCS: 52000; 74018; C1758; J0696; J1580; J7120

== ENCOUNTER 2018-05-24 00:27 | Emergency (ER) | payer MEDICARE, MEDICAID ==
[2018-05-24 00:27] VITALS: BMI 23.7
[2018-05-24 01:17] LABS: BASO # 0.1 K/uL (0.0-0.2); BASO % 0.8 % (0.0-2.0); EOS # 0.1 K/uL (0.0-0.7); EOS % 0.8 % (0.0-4.0); HEMOGLOBIN 15.3 g/dL (12.0-18.0); LYMPH % 26.3 % (20.0-40.0); MEAN CORPUSCULAR HEMOGLOBIN 30.4 pg (27.0-31.0); MEAN CORPUSCULAR HGB CONC 33.5 g/dL (33.0-37.0); MEAN PLATELET VOLUME 8.4 fL (7.2-11.7); MONO # 0.6 K/uL (0.0-0.8); MONO % 8.2 % (0.0-10.0); NEUT # 4.8 K/uL (1.8-7.0); NEUT % 63.9 % (50.0-75.0); NRBC % 0.2 % (0.0-2.0); RBC 5.02 Mil/uL (4.40-5.90); RED CELL DISTRIBUTION WIDTH 14.1 % (11.5-14.5); WHITE BLOOD COUNT 7.5 K/uL (4.8-10.8)
--- NOTE | 2018-05-24 01:21 | C.PDOC ---
History Of Present Illness 33 y/o male presents to the ED complaining of bizarre thoughts for the past few days. He states he has been having "a flight of ideas". The patient denies any SI/HI. He offers no medical complaints at this time. Time Seen by Provider: 05/24/18 00:48 Chief Complaint (Nursing): Psychiatric Evaluation History Per: Patient History/Exam Limitations: no limitations Onset/Duration Of Symptoms: Days Current Symptoms Are (Timing): Still Present Recent travel outside of the [place]: No Past Medical History Reviewed: Historical Data, Nursing Documentation, Vital Signs Vital Signs: Last Vital Signs Temp 98.5 F 05/24/18 00:43 Pulse 76 05/24/18 00:43 Resp 18 05/24/18 00:43 BP 143/96 H 05/24/18 00:43 Pulse Ox 97 05/24/18 00:43 - Medical History PMH: Anxiety, Depression, Fractures (JAW), Schizophrenia Denies: Diabetes, Hepatitis, HIV, HTN, Chronic Kidney Disease, Sexually Transmitted Disease Other Surgeries: Jaw wire - [facility] Procedures GROUP PSYCHOTHERAPY (04/25/17) INDIV PSYCHOTHERAPY FOR SUBSTANCE ABUSE TREATMENT, SUPPORT (03/27/17) INDIV PSYCHOTHERAPY FOR SUBSTANCE ABUSE, COGNITIV BEHAVIORAL (03/27/17) INDIV PSYCHOTHERAPY FOR SUBSTANCE ABUSE, PSYCHOEDUCATION (03/27/17) INDIVIDUAL PSYCHOTHERAPY, COGNITIVE-BEHAVIORAL (04/25/17) INDIVIDUAL PSYCHOTHERAPY, SUPPORTIVE (04/25/17) Family History: States: Unknown Family Hx - Social History Hx Alcohol Use: No Hx Substance Use: Yes - Immunization History Hx Tetanus Toxoid Vaccination: No Hx Influenza Vaccination: No Hx Pneumococcal Vaccination: No Review Of Systems Except As Marked, All Systems Reviewed And Found Negative. Constitutional: Negative for: Fever, Chills, Sweats Neurological: Positive for: Other (bizarre thoughts) Psych: Positive for: Anxiety (increased). Negative for: Suicidal ideation Physical Exam - Physical Exam Appears: Other (Anxious and bizarre behavior) Skin: Normal Color, Warm, Dry Head: Atraumatic, Normacephalic Eye(s): bilateral: PERRL, EOMI Ear(s): Bilateral: Normal Oral Mucosa: Moist Chest: Symmetrical Cardiovascular: Rhythm Regular, No Murmur Respiratory: Normal Breath Sounds, No Rales, No Rhonchi, No Wheezing Gastrointestinal/Abdominal: Soft, No Tenderness, No Distention Rectal: Other (no definite bleed) Extremity: Normal ROM Extremity: Bilateral: Atraumatic, Normal Color And Temperature, Normal ROM Neurological/Psych: Oriented x3, Normal Speech Gait: Steady ED Course And Treatment - Laboratory Results Result Diagrams: 05/24/18 01:12 05/24/18 01:12 O2 Sat by Pulse Oximetry: 97 (RA) Pulse Ox Interpretation: Normal Medical Decision Making Medical Decision Making: Impression: 33 y/o male complaining of having bizarre thoughts. Denies SI/HI Plan: -Alcohol serum -CMP -Magnesium -Phosphorous -Drug Screen -UA 0222: Patient refused psych eval. Will be discharged Disposition Discussed With Dr.: Dudley García Counseled Patient/Family Regarding: Diagnosis - Disposition Referrals: [facility] [Outside] Disposition: HOME/ ROUTINE Disposition Time: 03:25 Condition: STABLE Prescriptions: Nitrofurantoin Macrocrystals [Macrobid] 1 cap PO BID #14 cap Phenazopyridine HCl [Pyridium] 200 mg PO TID #20 tablet Instructions: Urinary Tract Infections in Adults, Schizophrenia (DC) Forms: [employer] ([place]ian) - POA Present On Arrival: None - Clinical Impression Clinical Impression: UTI (urinary tract infection), Anxiety disorder - PA / COMPONENTS ENGINEER / Resident Statement MD/DO has reviewed & agrees with the documentation as recorded. - Scribe Statement The provider has reviewed the documentation as recorded by the Scribe (Dacia Avendaño) Provider Attestation: All medical record entries made by the Scribe were at my direction and personally dictated by me. I have reviewed the chart and agree that the record accurately reflects my personal performance of the history, physical exam, medical decision making, and the department course for this patient. I have also personally directed, reviewed, and agree with the discharge instructions and disposition.
[2018-05-24 01:27] LABS: ALB/GLOB RATIO 1.9 (1.0-2.1); ALBUMIN 4.8 g/dL (3.5-5.0); ALT/SGPT 35 U/L (21-72); AST/SGOT 18 U/L (17-59); BLOOD UREA NITROGEN 9 mg/dL (9-20); CALCIUM 9.7 mg/dl (8.6-10.4); GFR NON-AFRICAN AMERICAN > 60
[2018-05-24 02:50] LABS: URINE BACTERIA RARE (<OCC); URINE BILIRUBIN NEGATIVE (NEGATIVE); URINE CLARITY Clear (Clear); URINE COLOR Yellow (YELLOW); URINE GLUCOSE (UA) NORMAL (Normal); URINE LEUKOCYTE ESTERASE NEG Leu/uL (Negative); URINE PROTEIN NEGATIVE (NEGATIVE); URINE UROBILINOGEN NORMAL mg/dL (0.2-1.0)
[2018-05-24 02:51] LABS: URINE BLOOD TRACE (NEGATIVE)
[2018-05-24 03:19] LABS: BARBITURATES, UR NEGATIVE (NEGATIVE); BENZODIAZEPINES, UR NEGATIVE (NEGATIVE); OPIATES, UR NEGATIVE (NEGATIVE); PHENCYCLIDINE, UR NEGATIVE (NEGATIVE)
[2018-05-24 04:29] VITALS: BP 137/91; PULSE 74; RESP 16; TEMP 98.4
[2018-05-24 05:53] VITALS: O2SAT 97
== END 2018-05-24 05:56 | disposition home or self-care (01) ==
LOC: C.ER 00:27
DX: F41.9 Anxiety disorder, unspecified (principal); N39.0 Urinary tract infection, site not specified
CPT/HCPCS: 36415; 80053; 81001; 83735; 84100; 85025; 99284; G0480

== ENCOUNTER 2018-10-16 13:19 | Inpatient (IN) | payer MEDICARE, MEDICAID ==
[2018-10-16 13:20] VITALS: BMI 23.7
--- NOTE | 2018-10-16 13:50 | C.PDOC ---
History Of Present Illness 33 y/o male with PMH of depression, anxiety, schizophrenia, alcohol abuse presents to ED c/o auditory hallucinations and requesting detox from alcohol. States sometimes he "hears things that other people cannot hear", but denies hea ring voices. Last drink this afternoon, "a few shots" and admits to marijuana use today as well. Denies other drug use. Denies having established psychiatric followup. Denies any physical complaints. Denies SI, HI, visual hallucinations, tremors, seizures, fever, chills, abdominal pain, nausea, vomiting, diarrhea, back pain, headache, dizziness, vision changes, numbness, weakness, paresthesias, or any other associated symptoms. Time Seen by Provider: 10/16/18 13:46 Chief Complaint (Nursing): Medical Clearance Past Medical History Reviewed: Historical Data, Nursing Documentation, Vital Signs Vital Signs: Last Vital Signs Temp 98.6 F 10/16/18 13:31 Pulse 92 H 10/16/18 13:31 Resp 20 10/16/18 13:31 BP 126/94 H 10/16/18 13:31 Pulse Ox 96 10/16/18 13:31 - Medical History PMH: Anxiety, Depression, Fractures (JAW), Schizophrenia Denies: Diabetes, Hepatitis, HIV, HTN, Chronic Kidney Disease, Sexually Transmitted Disease - [facility] Procedures GROUP PSYCHOTHERAPY (04/25/17) INDIV PSYCHOTHERAPY FOR SUBSTANCE ABUSE TREATMENT, SUPPORT (03/27/17) INDIV PSYCHOTHERAPY FOR SUBSTANCE ABUSE, COGNITIV BEHAVIORAL (03/27/17) INDIV PSYCHOTHERAPY FOR SUBSTANCE ABUSE, PSYCHOEDUCATION (03/27/17) INDIVIDUAL PSYCHOTHERAPY, COGNITIVE-BEHAVIORAL (04/25/17) INDIVIDUAL PSYCHOTHERAPY, SUPPORTIVE (04/25/17) Family History: States: Unknown Family Hx - Social History Hx Alcohol Use: No Hx Substance Use: Yes - Immunization History Hx Tetanus Toxoid Vaccination: No Hx Influenza Vaccination: No Hx Pneumococcal Vaccination: No Review Of Systems Constitutional: Negative for: Fever, Chills Eyes: Negative for: Vision Change ENT: Negative for: Nose Congestion, Throat Pain Cardiovascular: Negative for: Chest Pain, Palpitations, Light Headedness Respiratory: Negative for: Cough, Shortness of Breath Gastrointestinal: Negative for: Nausea, Vomiting, Abdominal Pain, Diarrhea Genitourinary: Negative for: Dysuria, Frequency, Penile Discharge Musculoskeletal: Negative for: Neck Pain, Back Pain Skin: Negative for: Rash Neurological: Negative for: Weakness, Numbness, Seizures, Headache, Dizziness Psych: Positive for: Anxiety, Depression. Negative for: Suicidal ideation Physical Exam - Physical Exam Appears: Well, Non-toxic, No Acute Distress Skin: Normal Color, Warm, Dry Head: Atraumatic, Normacephalic Eye(s): bilateral: Normal Inspection, PERRL, EOMI Nose: Normal Oral Mucosa: Moist Throat: Normal Neck: Normal, Normal ROM, Supple Cardiovascular: Rhythm Regular Respiratory: Normal Breath Sounds Gastrointestinal/Abdominal: Normal Exam, Soft, No Tenderness Back: Normal Inspection, No CVA Tenderness, No Decreased ROM, No Paraspinal Tenderness Extremity: Normal ROM, Capillary Refill (<2s) Extremity: Bilateral: Atraumatic, No Pedal Edema, Normal Color And Temperature, Normal ROM Pulses: Left Radial: Normal, Right Radial: Normal Neurological/Psych: Oriented x3, Normal Speech, Normal Motor, Normal Sensation Gait: Steady ED Course And Treatment - Laboratory Results Result Diagrams: 10/16/18 14:53 10/16/18 14:53 O2 Sat by Pulse Oximetry: 96 Medical Decision Making Medical Decision Making: Initial Plan: * Bloodwork * Alcohol, Acetaminophen, and Salicylate Levels * UA * UDS 1630 Labwork reviewed, no significant findings. Mild hypokalemia repleted with oral KCl Patient medically cleared for psychiatric evaluation 1830 Advised by youth support worker that patient is to be admitted to the psychiatric floor under Dr. García with diagnosis of major depressive disorder and cannabis use disorder. Patient made aware of change in disposition. Resting comfortably in stretcher with stable vital signs at this time. No tremors, no nausea, no vomiting. Disposition Counseled Patient/Family Regarding: Studies Performed, Diagnosis - Disposition Disposition: HOSPITALIZED Disposition Time: 16:30 Condition: STABLE - Clinical Impression Clinical Impression: Major depressive disorder, Cannabis use disorder, mild, abuse
[2018-10-16 14:58] LABS: BASO % 0.4 % (0.0-2.0); EOS % 0.6 % (0.0-4.0); HEMOGLOBIN 15.6 g/dL (12.0-18.0); LYMPH # 1.5 K/uL (1.0-4.3); LYMPH % 22.1 % (20.0-40.0); MEAN CELL VOLUME 93.8 fL (80.0-94.0); MEAN CORPUSCULAR HEMOGLOBIN 31.2 pg (27.0-31.0); MEAN CORPUSCULAR HGB CONC 33.3 g/dL (33.0-37.0); MEAN PLATELET VOLUME 8.5 fL (7.2-11.7); MONO # 0.4 K/uL (0.0-0.8); MONO % 6.7 % (0.0-10.0); NEUT # 4.6 K/uL (1.8-7.0); NEUT % 70.2 % (50.0-75.0); NRBC % 0.1 % (0.0-2.0); RBC 5.01 Mil/uL (4.40-5.90); RED CELL DISTRIBUTION WIDTH 13.1 % (11.5-14.5); WHITE BLOOD COUNT 6.6 K/uL (4.8-10.8)
[2018-10-16 15:06] LABS: URINE BILIRUBIN NEGATIVE (NEGATIVE); URINE BLOOD 1+ (NEGATIVE); URINE CLARITY Clear (Clear); URINE COLOR Yellow (YELLOW); URINE GLUCOSE (UA) NORMAL (Normal); URINE LEUKOCYTE ESTERASE NEG Leu/uL (Negative); URINE PROTEIN NEGATIVE (NEGATIVE); URINE UROBILINOGEN NORMAL mg/dL (0.2-1.0)
[2018-10-16 15:12] LABS: ALB/GLOB RATIO 1.9 (1.0-2.1); ALBUMIN 4.9 g/dL (3.5-5.0); ALT/SGPT 30 U/L (21-72); AST/SGOT 29 U/L (17-59); BLOOD UREA NITROGEN 16 mg/dL (9-20); CALCIUM 9.4 mg/dl (8.6-10.4); GFR NON-AFRICAN AMERICAN > 60
[2018-10-16 15:14] LABS: ACETAMINOPHEN < 10.0 ug/mL (10.0-30.0); SALICYLATE < 1.0 mg/dL 1
[2018-10-16] MEDS ORDERED: Potassium Chloride 20 mEq ER Tab PO STA (15:21)
[2018-10-16 15:28] LABS: BARBITURATES, UR NEGATIVE (NEGATIVE); BENZODIAZEPINES, UR NEGATIVE (NEGATIVE); OPIATES, UR NEGATIVE (NEGATIVE); PHENCYCLIDINE, UR NEGATIVE (NEGATIVE)
[2018-10-16] MEDS ORDERED: Potassium Chloride 20 mEq ER Tab PO ONE (15:29)
--- NOTE | 2018-10-16 22:22 | PCM.BM ---
<Manjinder Forbes - Last Filed: 10/16/18 22:19> Treatment Plan Problems - Problems identified on initial assessmt Suicidal Ideation Date Initiated: 10/16/18 Time Initiated: 19:30 Assessment reference: NA Status: Active Medication nonadherence Date Initiated: 10/16/18 Time Initiated: 19:30 Assessment reference: NA Status: Active Treatment assets and liabiliti Patient Assests: ADL independent, physically healthy Patient Liabilities: substance abuse (Marijuana, ETOH) - Milieu Protocol Maintain good personal hygiene: daily Encourage regular showers, daily Remind patient to perform daily oral care, every shift Assist patient to perform ADL's Conduct patient checks and document Observation sheet: Q15 minutes Maintain personal safety: every shift Educate patient to report safety concerns to staff, every shift Monitor environment for contraband/sharps Medication safety: Monitor for expected outcome, potential side effects: every shift, Assess barriers to learning: every shift, Assess readiness for medication education: every shift <Barbi De La Cruz - Last Filed: 10/18/18 10:55> - Diagnosis (1) Schizoaffective disorder Status: Acute Interventions: 10/18/18 10:55 * Assess/adjust medications daily and /or as needed * See patient on an individual basis 7x/week to assess status of hallucinations * Discuss risks, benefits, side effects and alternatives of medications * <Luisana Perla - Last Filed: 10/18/18 11:55> Family Contact Family involvement: Famliy/SO not involved - Goals for Treatment Patient goals for treatment: "I need an outpatient program." Discharge/Continuing Care - Education Needs Education Needs: Patient Medication, Patient Coping Skills - Discharge Discharge Criteria: Tolerates medication w/o severe side effects, Reduction of target symptoms Discharge to:: Home - Treatment Team Participation Discussed with Family/SO: No Was Patient/Family/SO present at Treatment Team Meeting: Yes
--- NOTE | 2018-10-17 10:07 | PCM.PSYCH ---
Initial Psychiatric Evaluation - Initial Psychiatric Evaluation Type of Admission: Voluntary Legal Status: Capacity Chief Complaint (in patient's own words): I am hearing voices.' History of Present Illness and Precipitating Events: Patient is a 32-year-old -Lib[place] male, who is single with no child, unemployed and on SSI. He currently lives with a friends family in [place]. Patient is a poor historian. Upon interviewing, he is unkempt and disheveled. Patient states that he is paranoid and hears voices that tell him to kill himself and to commit suicide. He states that he is fearful and is loosing it from the voices. Patient also reports seeing shadows that he turns his head to focus on but is unable. Patient reports that at times he gets very angry at himself for the voices that he hears. He also reports laughing at times for unknown reasons. He has a prior suicide ideation and plan when he planned to choke himself with an extension cord 2 years ago. He has many depressive symptoms stating that he is hopeless and helpless. Patient also complains of poor sleep. He is not taking any medications currently. States that he smokes 2-3 joints of marijuana daily and has just a couple of shots of alcohol every day. He also smokes 1.5 PPD of cigarettes cig. He denies using and other illicit drugs. Past psych history: Several admissions and no suicide attempts. Family psych history: Mother was schizophrenic Medical history: Denies Current Medications: Active Medications Generic Name Dose Route Start Last Admin Trade Name Freq PRN Reason Stop Dose Admin Pneumococcal Polyvalent Vaccine 0.5 ml 10/19/18 10:00 Pneumovax 23 Vaccine IM 10/19/18 10:01 .ONCE ONE Trazodone HCl 100 mg 10/16/18 22:00 10/16/18 22:36 Desyrel PO 100 mg HS KIKE Administration Past Psychiatric History - Past Psychiatric History Previous Treatment History: Inpatient Pertinent Medical Hx (Current Medical&Sleep Prob, Allergies): Allergies Allergy/AdvReac Type Severity Reaction Status Date / Time No Known Allergies Allergy Verified 10/16/18 13:34 No Known Home Med 10/16/18 Review of Systems - Review of Systems All systems: reviewed and no additional remarkable complaints except - Psychiatric Psychiatric: Anxiety, Auditory Hallucinations, Irritability, Mood Swings, Suicidal Ideation Mental Status Examination - Personal Presentation Personal Presentation: Looks stated age - Affect Affect: Constricted, Depressed - Motor Activity Motor Activity: Psychomotor Retardation - Reliability in Providing Information Reliability in Providing Information: Poor, due to alteration in thoughts, Poor, due to altered mood - Speech Speech: Disorganized - Mood Mood: Anxious - Formal Thought Process Formal Thought Process: Hallucinations, Delusions, Paranoia, Loosening of associations - Hallucinations/Delusions Hallucinations: Visual, Auditory Delusions: Persecution - Obsessions/Compulsions Obsessions: No Compulsions: No - Cognitive Functions Orientation: Person, Place, Situation, Time Sensorium: Alert Attention/Concentration: Attentive Abstract Thinking: [place] Estimate of Intelligence: Below average Judgement: Imparied, as evidence by: Poor judgement, Imparied, as evidence by: Lack of insight into illness - Risk Risk: Suicidal, Diminished functioning - Limitations Limitations: Living alone DSM 5 DX - DSM 5 DSM 5 Diagnosis: Schizoaffective disorder bipolar type Alcohol use disorder moderate Cannabis use disorder moderate - Recommended/Plan of Treatment Treatment Recommendations and Plan of Treatment: Schizoaffective disorder bipolar type Alcohol use disorder moderate Cannabis use disorder moderate -CBT -Psychoeducation -Supportive therapy and group therapy -Haldol for psychosis -Cogentin for EPS -Trileptal for mood -Trazodone for insomnia -Hydroxyzine for anxiety - Smoking Cessation Smoking Cessation Initiated: No
--- NOTE | 2018-10-18 10:56 | PCM.PYCHPN ---
Psychiatric Progress Note - Psychiatric Progress Note Patient seen today, length of contact: 16 min Patient Chief Complaint: I am hearing voices.' Problems Identified/Issues Discussed: Patient seen and evaluated, chart reviewed and discussed with the nurse. Pt reports reports irritability and agitation. Pt remained disorganized and internally preoccupied. He remained isolated and withdrawn, and confined to his room. Patient is compliant with medications and denies any side effects. Symptoms are improving but pt needs more time to stabilize. Support and psychoeducation given. Medication Change: Yes Medical Record Reviewed: Yes Mental Status Examination - Cognitive Function Orientation: Person, Place, Situation, Time Memory: Intact Attention: WNL Concentration: Poor Association: Loose Fund of Knowledge: WNL - Mood Mood: Anxious - Affect Affect: Constricted, Depressed - Speech Speech: Soft - Formal Thought Process Formal Thought Process: Hallucinations, Delusions, Paranoia, Loosening of associations - Suicidal Ideation Suicidal Ideation: No - Homicidal Ideation Homicidal Ideation: No Goal/Treatment Plan - Goal/Treatment Plan Need for Continued Stay: Remain at risks for inpatient hospitalization, Severe depression anxiety Progress Toward Problem(s) and Goals/Treatment Plan: Schizoaffective disorder bipolar type Alcohol use disorder moderate Cannabis use disorder moderate -CBT -Psychoeducation -Supportive therapy and group therapy -Haldol for psychosis -Cogentin for EPS -Trileptal for mood -Trazodone for insomnia -Hydroxyzine for anxiety
[2018-10-19 06:43] VITALS: O2SAT 97
[2018-10-19] MEDS ORDERED: Pneumococcal 23-Valent Vaccine IM ONE (10:00)
[2018-10-21 06:28] VITALS: BP 117/76; PULSE 77; RESP 18; TEMP 97.7
--- NOTE | 2018-10-21 10:43 | PCM.PYCHDC ---
Mental Status Examination - Mental Status Examination Orientation: Person, Place, Situation, Time Memory: Intact Mood: Neutral Affect: Constricted Speech: Soft Attention: WNL Concentration: WNL Association: WNL Fund of Knowledge: WNL Formal Thought Process: No Impairment Description of patient's judgement and insight: good, fair Psychotic Thoughts and Behaviors: denies any AVH Suicidal Ideation: No Current Homicidal Ideation?: No Discharge Summary - Discharge Note Reason for Hospitalization: Patient is a 32-year-old -[place] male, who is single with no child, unemployed and on SSI. He currently lives with a friends family in [place]. Patient is a poor historian. Upon interviewing, he is unkempt and disheveled. Patient states that he is paranoid and hears voices that tell him to kill himself and to commit suicide. He states that he is fearful and is loosing it from the voices. Patient also reports seeing shadows that he turns his head to focus on but is unable. Patient reports that at times he gets very angry at himself for the voices that he hears. He also reports laughing at times for unknown reasons. He has a prior suicide ideation and plan when he planned to choke himself with an extension cord 2 years ago. He has many depressive symptoms stating that he is hopeless and helpless. Patient also complains of poor sleep. He is not taking any medications currently. States that he smokes 2-3 joints of marijuana daily and has just a couple of shots of alcohol every day. He also s mokes 1.5 PPD of cigarettes cig. He denies using and other illicit drugs. Consultations:: List each consultation separately and include: 1. Reason for request. 2. Findings. 3. Follow-up Summary of Hospital Course include:: 1. Description of specific treatment plan utilized for patients during their course of treatmen. 2. Summarize the time- course for resolution of acute symptoms and/or regressed behaviors. 3. Describe issues identified and worked on during hospitalization. 4. Describe medication utilized. 5. Describe medical problems identified and treated. 6. Reassessment of suicide risk Summary of Hospital Course: During the course of his stay, patient (pt) started progressively improving and he no longer remained irritable, depressed, suicidal and paranoid. His mood and paranoia were improved and he started attending groups and meetings and started socializing. Patient denied any feelings of hopelessness, helplessness, and worthlessness, denied any problem with the sleep or appetite, denied suicidal ideation or homicidal ideation. Pt denied any auditory or visual hallucinations. Some changes were made in his current medications and patient was discharged on following medications. He tolerated these medications very well and denied any side effects. - Diagnosis (1) Schizoaffective disorder Status: Acute - Final Diagnosis (DSM 5) Condition upon Discharge: STABLE DSM 5: Schizoaffective disorder bipolar type Alcohol use disorder moderate Cannabis use disorder moderate Disposition: HOME/ ROUTINE Follow-up Treatment Plan: A/P: Pt to follow up with [facility] Education: Pt was educated and counseled about the risks and benefits of taking and not taking medications. Pt was educated and counseled about the risks of drinking and abusing drugs. Pt was educated and counseled to go to the ER or call 911 if pt develop suicidal ideation or homicidal ideation, worsening of symptoms or severe side effects of the meds. Prescriptions/Medication Reconciliation: Benztropine [Cogentin] 1 mg PO BID #60 tab Haloperidol [Haldol] 5 mg PO BID #60 tab OXcarbazepine [Trileptal] 150 mg PO BID #60 tab traZODone [Desyrel] 100 mg PO HS #30 tab - Smoking Cessation Smoking Cessation Medication prescribed: No - Antipsychotic Medications Pt discharged on 2 or more routine antipsychotic medications: No
== END 2018-10-21 12:31 | disposition home or self-care (01) | DRG 885 ==
LOC: C.ER 13:19 → C.5E 18:32
PROC: HZ52ZZZ Individual Psychotherapy for Substance Abuse Treatment, Cognitive-Behavioral (ICD-10-PCS; principal; 2018-10-16)
PROC: HZ59ZZZ Individual Psychotherapy for Substance Abuse Treatment, Supportive (ICD-10-PCS; 2018-10-16)
PROC: HZ56ZZZ Individual Psychotherapy for Substance Abuse Treatment, Psychoeducation (ICD-10-PCS; 2018-10-16)
PROC: HZ42ZZZ Group Counseling for Substance Abuse Treatment, Cognitive-Behavioral (ICD-10-PCS; 2018-10-16)
PROC: HZ46ZZZ Group Counseling for Substance Abuse Treatment, Psychoeducation (ICD-10-PCS; 2018-10-16)
PROC: GZHZZZZ Group Psychotherapy (ICD-10-PCS; 2018-10-16)
PROC: GZ58ZZZ Individual Psychotherapy, Cognitive-Behavioral (ICD-10-PCS; 2018-10-16)
PROC: GZ56ZZZ Individual Psychotherapy, Supportive (ICD-10-PCS; 2018-10-16)
DX: F25.0 Schizoaffective disorder, bipolar type (principal); R45.851 Suicidal ideations; F10.20 Alcohol dependence, uncomplicated; Y90.3 Blood alcohol level of 60-79 mg/100 ml; F12.20 Cannabis dependence, uncomplicated; G47.00 Insomnia, unspecified; F41.9 Anxiety disorder, unspecified